=== PATIENT | male | born 1945 | race Caucasian/White ===

== ENCOUNTER 2017-10-16 09:47 | Emergency (ER) | payer OTHER ==
[~2017-10-16] VITALS: Ht 175.3 cm; Wt 116.6 kg
[~2017-10-16 09:47] MED LIST: ACEROLA C500 MG PO; ACID CONTROLLER20 MG PO; ADULT LOW DOSE81 MG PO; ASACOL HD800 MG PO; COLACE 100 MG100 MG PO; GLUCOPHAGE1000 MG PO; GLUCOTROL5 MG PO; IRON325 PO; JANUVIA100 MG PO; LISINOPRIL10 MG PO; LOPRESSOR25 PO; NITROQUICK0.4 MG SL; PLAVIX 75 MG TA75 MG PO; SIMVASTATIN80 MG PO; SPIRONOLACTONE25 M1 PO; VICODIN ES 7.51 EACH PO
[2017-10-16 10:11] LABS: ABSOLUTE BASOPHILS 0.1 thou/uL (0.0-0.2); ABSOLUTE EOSINOPHILS 0.1 thou/uL (0.0-0.7); ABSOLUTE LYMPHOCYTES 1.4 thou/uL (0.8-5.3); ABSOLUTE MONOCYTES 0.4 thou/uL (0.0-1.2); BASOPHILS 1.2 %; EOSINOPHILS 1.8 %; HEMATOCRIT 40.2 % (42.0-52.0); HEMOGLOBIN 13.3 gm/dL (14.0-18.0); LYMPHOCYTES 23.2 %; MCH 32.9 pg (26.0-34.0); MCV 99.6 fL (80.0-100.0); MONOCYTES 7.1 %; NUCLEATED RBCS 0 /100WBC; PLATELET COUNT* 199 thou/uL (150-400); POLYS 66.7 %; RBC 4.04 mil/uL (4.50-6.00); RDW-CV 14.6 % (10.5-14.5)
[2017-10-16 10:17] LABS: ANION GAP 10 mmol/L (7-16); BUN 10 mg/dL (7-18); CALCIUM 9.5 mg/dL (8.5-10.1); CHLORIDE 100 mmol/L (98-107); CO2 26 mmol/L (21-32); CREATININE 0.9 mg/dL (0.6-1.3); GLUCOSE 246 mg/dL (70-99); POTASSIUM 4.2 mmol/L (3.5-5.1); SODIUM 136 mmol/L (136-145)
[2017-10-16 10:24] LABS: ALBUMIN 3.8 g/dL (3.4-5.0); ALKALINE PHOSPHATASE 50 U/L (46-116); SGOT 45 U/L (15-37); SGPT 58 U/L (30-65); TOTAL BILIRUBIN 0.5 mg/dL (<0.1-1.0); TOTAL PROTEIN 7.8 g/dL (6.4-8.2); TROPONIN-I LEVEL <0.06 ng/mL (<0.06)
[2017-10-16 10:27] LABS: APTT 25.7 Seconds (25.0-31.3); INR 1.1; PROTIME 10.7 Seconds (9.20-11.50)
[2017-10-16] MEDS ORDERED: PREDNISONE 20 M20 M1 PO (10:32)
[2017-10-16] MEDS ORDERED: ACYCLOVIR 400400 MG PO (10:32)
[2017-10-16 11:07] VITALS: BP 120/57
--- NOTE | 2017-10-17 09:33 | EKG ---
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1945 Requested By: Javi Pena Order Number: [id number] MD: Andres Dhaliwal Measurements Intervals [place] Rate: 63 P: 44 VA: 164 QRS: 6 QRSD: 99 T: 28 QT: 414 QTc: 424 Interpretive Statements Sinus rhythm Inferior infarct, old Compared to ECG 12/16/2009 08:15:27 Myocardial infarct finding now present Electronically Signed On 10-17-2017 9:33:07 CDT by Andres Dhaliwal [email or web address] <ELECTRONICALLY SIGNED> By: Andres Dhaliwal MD, [facility] 10/17/17 0933 1026 1026 Andres Dhaliwal MD, [facility] /EPI
== END 2017-10-16 11:10 | disposition home or self-care (01) ==
LOC: M.ERS 09:47
PROVIDERS: Family Medicine
DX: G51.0 Bell's palsy (principal); E11.9 Type 2 diabetes mellitus without complications; K51.90 Ulcerative colitis, unspecified, without complications; G47.30 Sleep apnea, unspecified; F32.9 Major depressive disorder, single episode, unspecified; Z90.89 Acquired absence of other organs; Z88.8 Allergy status to other drugs, medicaments and biological substances

== ENCOUNTER 2018-03-20 16:22 | Inpatient (IN) | payer OTHER ==
[~2018-03-20] VITALS: Ht 175.3 cm; Wt 113.4 kg
[~2018-03-20 16:22] MED LIST changes: +ACYCLOVIR 400400 MG PO; +PREDNISONE 20 M20 M1 PO
[2018-03-20 16:28] VITALS: BP 182/104
[2018-03-20 16:47] LABS: HEMATOCRIT 50.3 % (42.0-52.0); HEMOGLOBIN 15.8 gm/dL (14.0-18.0); MCH 32.1 pg (26.0-34.0); MCHC 31.4 g/dL (28.0-37.0); MCV 102.3 fL (80.0-100.0); MPV 8.5 fl. (7.2-11.1); NUCLEATED RBCS 0 /100WBC; PLATELET COUNT* 348 thou/uL (150-400); RBC 4.91 mil/uL (4.50-6.00); RDW-CV 15.1 % (10.5-14.5)
[2018-03-20 16:54] LABS: INR 1.1; PROTIME 11.4 Seconds (9.20-11.50)
[2018-03-20 17:04] LABS: ANION GAP 25 mmol/L (7-16); BUN 49 mg/dL (7-18); CALCIUM 9.8 mg/dL (8.5-10.1); CHLORIDE 96 mmol/L (98-107); CO2 16 mmol/L (21-32); POTASSIUM 4.6 mmol/L (3.5-5.1); SODIUM 137 mmol/L (136-145)
[2018-03-20 17:05] LABS: BE -3.1 mmol/L (-2 to +3)
[2018-03-20 17:06] LABS: PCO2 56.1 mmHg (35.0-45.0); pH 7.267 (7.340-7.450)
[2018-03-20 17:14] LABS: ALBUMIN 3.7 g/dL (3.4-5.0); ALKALINE PHOSPHATASE 115 U/L (46-116); NT-PRO BRAIN NAT PEPTIDE 264 pg/mL (<300); SGPT 44 U/L (30-65); TOTAL BILIRUBIN 1.1 mg/dL (<0.1-1.0); TOTAL PROTEIN 9.4 g/dL (6.4-8.2); TROPONIN-I LEVEL <0.06 ng/mL (<0.06)
[2018-03-20 17:38] LABS: ABSOLUTE LYMPHOCYTES 0.2 thou/uL (0.8-5.3); ABSOLUTE MONOCYTES 0.5 thou/uL (0.0-1.2); ABSOLUTE NEUTROPHILS 16.3 thou/uL (1.6-8.1)
[2018-03-20 17:39] LABS: PLATELET ESTIMATE ADEQUATE
[2018-03-20 17:57] LABS: GLUCOSE 721 mg/dL (70-99)
[2018-03-20 18:01] LABS: SGOT 129 U/L (15-37)
[2018-03-20 19:14] VITALS: BP 178/103
[2018-03-20 19:20] VITALS: BP 188/100
[2018-03-20 19:21] LABS: URINE BILIRUBIN NEGATIVE (Negative); URINE BLOOD 3+ (Negative); URINE CLARITY CLEAR; URINE COLOR YELLOW; URINE GLUCOSE-RANDOM 3+ (Negative); URINE KETONES 1+ (Negative); URINE LEUKOCYTES-REFLEX NEGATIVE (Negative); URINE NITRITE-REFLEX NEGATIVE (Negative); URINE PROTEIN TRACE (Negative); URINE SPECIFIC GRAVITY 1.025 (1.005-1.030); URINE UROBILINOGEN 0.2 E.U./dl (0.2-1.0)
--- NOTE | 2018-03-20 19:34 | NUR ---
1910 RECEIVED PER CART FROM ER AND ICU MONITORING INITIATED
[2018-03-20 19:49] LABS: PHOSPHORUS* 4.7 mg/dL (2.5-4.9); TROPONIN-I LEVEL <0.06 ng/mL (<0.06)
[2018-03-20 20:01] LABS: CALCIUM 9.3 mg/dL (8.5-10.1); CREATININE 1.7 mg/dL (0.6-1.3); POTASSIUM 4.2 mmol/L (3.5-5.1)
[2018-03-20 20:02] LABS: HYALINE CASTS 4-10 Moderate /LPF (None Seen); MUCUS None Seen strn/LPF (None Seen); SQUAMOUS NONE SEEN /LPF (0-3)
[2018-03-20 20:03] LABS: BACTERIA-REFLEX 1-9 Few /HPF (None Seen); CRYSTALS None Seen /LPF (None Seen); URINE RBC 3-10 Few /HPF (0-2); URINE WBC-REFLEX 0-5 Rare /HPF (0-5)
[2018-03-20 20:04] LABS: ALBUMIN 3.6 g/dL (3.4-5.0); MAGNESIUM 2.9 mg/dL (1.8-2.4); PHOSPHORUS* 4.9 mg/dL (2.5-4.9)
[2018-03-21] VITALS (9 sets, daily range): BP systolic 113–165; BP diastolic 64–85
[2018-03-21 01:26] LABS: CALCIUM 8.8 mg/dL (8.5-10.1); CREATININE 1.2 mg/dL (0.6-1.3); POTASSIUM 3.8 mmol/L (3.5-5.1)
[2018-03-21 01:30] LABS: ALBUMIN 2.9 g/dL (3.4-5.0); MAGNESIUM 2.5 mg/dL (1.8-2.4)
[2018-03-21 05:16] LABS: CALCIUM 8.8 mg/dL (8.5-10.1); CREATININE 1.1 mg/dL (0.6-1.3); POTASSIUM 3.9 mmol/L (3.5-5.1)
[2018-03-21 05:18] LABS: MAGNESIUM 2.4 mg/dL (1.8-2.4); PHOSPHORUS* 3.3 mg/dL (2.5-4.9)
[2018-03-21 09:39] LABS: ALBUMIN 2.8 g/dL (3.4-5.0); CALCIUM 8.3 mg/dL (8.5-10.1); CREATININE 1.1 mg/dL (0.6-1.3); MAGNESIUM 2.4 mg/dL (1.8-2.4); PHOSPHORUS* 3.2 mg/dL (2.5-4.9); POTASSIUM 3.8 mmol/L (3.5-5.1)
--- NOTE | 2018-03-21 10:23 | EKG ---
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1945 Requested By: Aiden Stacy Order Number: [id number] MD: Andres Dhaliwal Measurements Intervals [place] Rate: 116 P: 54 CA: 142 QRS: 0 QRSD: 94 T: 136 QT: 345 QTc: 480 Interpretive Statements Sinus tachycardia Probable left atrial enlargement Inferior infarct, old Lateral leads are also involved Compared to ECG 10/16/2017 10:26:34 Sinus rhythm no longer present Myocardial infarct finding still present Electronically Signed On 03-21-2018 10:22:59 [employer] by Andres Dhaliwal [email or web address] <ELECTRONICALLY SIGNED> By: Andres Dhaliwal MD, FACC 03/21/18 1022 1630 1630 Andres Dhaliwal MD, FACC /EPI
[2018-03-21 10:37] LABS: HEMATOCRIT 44.1 % (42.0-52.0); HEMOGLOBIN 14.2 gm/dL (14.0-18.0); MCH 32.1 pg (26.0-34.0); MCHC 32.2 g/dL (28.0-37.0); MCV 99.6 fL (80.0-100.0); MPV 8.4 fl. (7.2-11.1); NUCLEATED RBCS 0 /100WBC; RBC 4.43 mil/uL (4.50-6.00); RDW-CV 14.7 % (10.5-14.5); WBC 14.2 thou/uL (4.0-11.0)
[2018-03-21 10:55] LABS: PLATELET COUNT* 250 thou/uL (150-400)
--- NOTE | 2018-03-21 11:14 | NUR ---
GAP CLOSED AT 0100. REPEATED LABS PER PROTOCOL. AFTER [address] WITH RESULTS. PT DRANK WATER AND DID BECOME NAUSEATED. DR ORDERED TO KEEP PT ON DKA PROTOCL. PT LOST IV ACCESS. DR NOTIFIED. RECEIVED ORDER FOR PICC LINE. RECEIVED ORDER FOR HIGH DOSE SLIDING SCALE WHILE PT DOES NOT HAVE INSULIN OR OTHER FLUIDS INFUSING. PT IS FORGETFUL. PT VODING PER URINAL.
[2018-03-21 12:04] LABS: ABSOLUTE LYMPHOCYTES 1.3 thou/uL (0.8-5.3); ABSOLUTE NEUTROPHILS 10.9 thou/uL (1.6-8.1); PLATELET ESTIMATE ADEQUATE
[2018-03-21 12:05] LABS: MACROCYTES 1+
--- NOTE | 2018-03-21 13:50 | NUR ---
PT REQUESTING NEOSPORIN TO RIGHT KNEE SCAB. NOTIFIED AND ORDERS RECEIVED.
[2018-03-21 14:07] LABS: ALBUMIN 2.7 g/dL (3.4-5.0); CALCIUM 7.9 mg/dL (8.5-10.1); CREATININE 0.9 mg/dL (0.6-1.3); MAGNESIUM 2.4 mg/dL (1.8-2.4); PHOSPHORUS* 3.5 mg/dL (2.5-4.9); POTASSIUM 4.5 mmol/L (3.5-5.1)
--- NOTE | 2018-03-21 14:14 | NUR ---
WARM COMPRESS APPLIED TO POSTERIOR NECK ABCESS. WOUND PATTED DRY. BACTROBAN OINTMENT APPLIED PER ID ORDERS. WOUND CULTURES SENT.
[2018-03-21 16:30] LABS: ALBUMIN 2.6 g/dL (3.4-5.0); CALCIUM 7.9 mg/dL (8.5-10.1); CREATININE 0.9 mg/dL (0.6-1.3); MAGNESIUM 2.5 mg/dL (1.8-2.4); PHOSPHORUS* 2.6 mg/dL (2.5-4.9); POTASSIUM 4.2 mmol/L (3.5-5.1)
--- NOTE | 2018-03-21 17:30 | NUR ---
DKA PROTOCOL DC'D. RECEIVED ORDER FOR DIABETIC DIET. PT PLACED ON HIGH DOSE SLIDING SCALE. ASKED DR IF WOULD LIKE LONG ACTING INSULIN, NO ORDERS RECEIVED. PT TOOK OUT LEFT FOREARM IV AND THREW ON FLOOR ON RIGHT SIDE OF BED.
--- NOTE | 2018-03-21 19:08 | NUR ---
PT TRANSFERRED TO ROOM 224 VIA BED FROM ICU AT 1900. REPORT RECEIVED FROM DILIP SIMMONS. VITAL SIGNS OBTAINED AND WITHIN NORMAL LIMITS. PT ORIENTED TO ROOM AND CALL LIGHT. THIS RN AGREES WITH PREVIOUS RESIDENCE LIFE COORDINATOR. 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 IN CONTACT ISOLATION FOR MRSA. PT DAUGHTER AT BEDSIDE AND UPDATED ON CURRENT PLAN OF CARE. PT ON 2L NC SAT UPPER 90'S. DENIES ANY SHORTNESS OF BREATH OR PAIN. MEDICATIONS PER JUL. PT REPOSITIONED EVERY 2 HOURS FOR COMFORT. HOURLY ROUNDING OBSERVED. BED IN LOW POSITION. CALL LIGHT WITHIN REACH. WILL CONTINUE PLAN OF CARE.
[2018-03-21 19:13] LABS: URINE BILIRUBIN NEGATIVE (Negative); URINE BLOOD 2+ (Negative); URINE CLARITY CLEAR; URINE COLOR YELLOW; URINE GLUCOSE-RANDOM 2+ (Negative); URINE KETONES 1+ (Negative); URINE LEUKOCYTES-REFLEX NEGATIVE (Negative); URINE NITRITE-REFLEX NEGATIVE (Negative); URINE PROTEIN NEGATIVE (Negative); URINE SPECIFIC GRAVITY >= 1.030 (1.005-1.030); URINE UROBILINOGEN 0.2 E.U./dl (0.2-1.0)
[2018-03-21 19:26] LABS: CRYSTALS None Seen /LPF (None Seen); FINE GRANULAR CASTS 0-3 Few /LPF (None Seen); HYALINE CASTS 0-3 Few /LPF (None Seen); MUCUS 4-6 Moderate strn/LPF (None Seen); SQUAMOUS 0-3 Few /LPF (0-3); URINE RBC 3-10 Few /HPF (0-2); URINE WBC-REFLEX None Seen /HPF (0-5)
--- NOTE | 2018-03-21 20:00 | NUR ---
RECEIVED REPORT AND ASSUMED CARE OF PT, ASSESSMENT COMPLETED. PT RESTING WITH EYES CLOSED. BIPAP ON WITH O2 AT 35%. SEVERAL AREAS OF ABRASIONS AND BRUISING. LG LESION NOTED TO LT BACK NECK, PUS NOTED. TELEMETRY ON SHOWING SR. WILL CONT TO MONITOR AND ASSIST NEEDED.
[2018-03-21 23:08] LABS: GLYCOHEMOGLOBIN (HGB A1C) 10.4 % (4.8-5.6)
[2018-03-22 00:50] VITALS: BP 132/72
--- NOTE | 2018-03-22 01:44 | CON ---
[address] [address] CONSULTATION Name: JEANNETTE ANN Room: [address] IN [facility]#: [id number] Admission: 03/20/18 Attend Phys: Cm Quispe, Discharge: Date of : 43 Report #: [id number] THIS REPORT FOR: //name// CC: Carol Quispe DATE OF SERVICE: 03/21/2018 CONSULTATION: Infectious diseases HISTORY OF PRESENT ILLNESS: The patient is a 72-year-old white male who comes to the hospital on 03/20. The patient apparently was found by his daughter hiding in a closet. He had fallen out of bed and had not been able to get up off the floor for unknown period of time. According to the patient, his daughter sees him about once or twice a week, so it may have been even several days. The patient presented in the hospital, he was noted to be in full blown diabetic ketoacidosis. In addition, the patient had a draining furuncle on his left neck. Infectious disease consultation was requested to assist with evaluation. The patient admits he has not taken any of his medication for about a month. When queried, he said "I just stopped taking medicine." The patient, when asked if he wanted to give up and , he said no. He is just tired of taking medicine. PAST MEDICAL HISTORY: Significant for diabetes with hypertension, hyperlipidemia. Other diagnoses include ulcerative colitis, coronary artery disease. He is post coronary artery bypass grafting, hepatitis A, depression, and sleep apnea. ALLERGIES: The patient lists allergies as METFORMIN, but description is that it causes diarrhea. MEDICATION RECONCILIATION: Medication reconciliation showed the current medications: Famotidine 20 mg daily, metoprolol 25 mg daily, clopidogrel 75 mg daily, iron 325 mg b.i.d., pantoprazole 40 mg IV daily, potassium phosphate, potassium chloride, infusions, Zosyn 3.375 IV every 8 hours, Colace 100 mg twice a day, mesalamine 800 mg b.i.d., prochlorperazine 10 mg q. 6 p.r.n. IV, promethazine suppositories 25 mg p.r.n., ondansetron 4 mg IV p.r.n., acetaminophen 650 mg p.o. q.4 hours p.r.n., insulin drip and vancomycin 750 mg IV times 1. SOCIAL HISTORY: The patient is . He lives by himself. He has 2 children who live in the area, but he says he sees him just once or twice a week. 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 He denies use of alcohol. He said he quit smoking 10-15 [place] [address] CONSULTATION Name: JEANNETTE ANN Room: [address]#: [id number] Admission: 03/20/18 Attend Phys: Cm Quispe, Discharge: Date of : 43 Report #: [id number] REVIEW OF SYSTEMS: CONSTITUTIONAL: Somewhat difficult, as the patient is confused and may have an element of denial. He says he is just fine and wants to go home. Denies any fevers, chills, sweats. He denies any headache. He notes rhinorrhea, but no congestion. Denies sore throat, trouble swallowing. He notes he has had an abscess on his neck "for a couple of months." He says it has just been draining pus for just over the last week or so. He has not taken any antibiotics for this. The patient denies cough, chest pain or shortness of breath. Denies angina, syncope or palpitations. He denies nausea or vomiting, although there is an emesis bag at the bedside. He denies abdominal pain. He says he does have his diarrhea, which is consistent with a history of ulcerative colitis, on no therapy. He notes when he stops his medicines, he does tend to get diarrhea. EXTREMITIES: No complaints. PHYSICAL EXAMINATION: GENERAL: The patient appears her stated age, alert, oriented to time, place, person and situation, not in any distress. VITAL SIGNS: Normal. The patient has been afebrile in the course of this hospitalization. Blood pressure 161/89, it was 182/104 when he came to the emergency room. SKIN: Shows focal lesion at the base of the left neck. This is about 4 cm of erythema, about 1 cm of fluctuance. With pressure, one can exclude gillian purulent creamy material. It is not particularly tender. ENT: Negative. Sinuses are not tender. HEART: Sounds normal without murmur. Regular rate and rhythm. LUNGS: Clear. ABDOMEN: Belly is morbidly obese, soft, not tender. EXTREMITIES: Unremarkable. The nails are in good repair. There are no diabetic foot wounds. LABORATORY DATA: The white count on admission was [address], hemoglobin 15.8, hematocrit 50%, platelets 348,000. Electrolytes were normal. BUN 33, creatinine 1.1, glucose was initially 721 and this morning is down to 225. The troponin, CPK and BNP are normal. Liver function tests are normal. Lactate was 7.6 in the ER and is normal this morning. Blood cultures times 2 are pending. There is no growth so far. No one has sent culture of the purulence from the neck. IMAGING DATA: Radiology department reports the chest x-ray has left lower lobe atelectasis or infiltrate. The abdominal ultrasound shows fatty liver. The CT of the intracranial structures did show significant right maxillary sinusitis, which appears acute. There is a cervical spine CT, which shows some degenerative changes. There is no comment about the soft tissue, but when I reviewed the images, I do not see any clearly [place] [address] CONSULTATION Name: JEANNETTE ANN Room: [address] IN [facility].#: [id number] Admission: 03/20/18 Attend Phys: Cm Quispe, Discharge: Date of : 43 Report #: [id number] ASSESSMENT AND PLAN: In summary, we have a 72-year-old diabetic who has been in neglect. He comes in with confusion and diabetic ketoacidosis. He has a longstanding abscess on his neck. At this time, he is to continue the vancomycin for skin and soft tissue infection pending results of cultures. I will obtain a specimen of the drainage for the lab. I would like to discontinue the Zosyn. We will continue treating his diabetes, coronary artery disease, hypertension, and ulcerative colitis. When the patient is stable, I think it may be worthwhile to have a visit with geriatric psychiatry. It is not clear if the patient is depressed and stopped his medicines as passive self-harm strategy, or if he is just too confused to understand that he needs to take his medication. In either case, the patient may not be safe to go home by himself after he is otherwise stabilized. I appreciate the opportunity to offer input in the care of the patient. Dr. Omalley will assume infectious disease care tomorrow. <ELECTRONICALLY SIGNED> By: Josse Banegas MD 03/22/18 0144 1012 [id number] Banegas MD /nt
[2018-03-22 04:48] VITALS: BP 128/70
[2018-03-22 05:53] LABS: ABSOLUTE LYMPHOCYTES 0.6 thou/uL (0.8-5.3); ABSOLUTE MONOCYTES 0.3 thou/uL (0.0-1.2); ABSOLUTE NEUTROPHILS 9.7 thou/uL (1.6-8.1); BASOPHILS 0.4 %; HEMATOCRIT 37.5 % (42.0-52.0); HEMOGLOBIN 12.4 gm/dL (14.0-18.0); LYMPHOCYTES 5.6 %; MCH 33.1 pg (26.0-34.0); MCHC 32.9 g/dL (28.0-37.0); MCV 100.5 fL (80.0-100.0); MONOCYTES 2.5 %; MPV 8.4 fl. (7.2-11.1); NUCLEATED RBCS 0 /100WBC; PLATELET COUNT* 196 thou/uL (150-400); POLYS 91.5 %; RBC 3.74 mil/uL (4.50-6.00); RDW-CV 14.1 % (10.5-14.5); WBC 10.6 thou/uL (4.0-11.0)
--- NOTE | 2018-03-22 05:55 | NUR ---
SLEPT WELL TONIGHT. PT ASKING TO REMOVE BIPAP, DID SO AND APPLIED 2L/NC OXYGEN. PT ABLE TO ANSWER ORIENTATION QUESTIONS BUT CONVERSATION CONFUSING. TELEMETRY CONT TO SHOW SR. ACHIEVED HS GOALS OF REST AND SAFETY. HOURLY ROUNDING OBSERVED. LESION TO NECK CONT TO DRAIN PURULENT DRAINAGE. TAKING IN PO FLUIDS WITHOUT COUGHING OR CHOKING. INCONT OF URINE EVEN WHEN URINAL IN PLACE.
[2018-03-22 06:02] LABS: ALBUMIN 2.4 g/dL (3.4-5.0); CALCIUM 8.2 mg/dL (8.5-10.1); MAGNESIUM 2.7 mg/dL (1.8-2.4); PHOSPHORUS* 3.2 mg/dL (2.5-4.9); TOTAL BILIRUBIN 0.5 mg/dL (<0.1-1.0); TOTAL PROTEIN 6.5 g/dL (6.4-8.2)
[2018-03-22 08:00] VITALS: BP 195/113
[2018-03-22 08:24] LABS: BE -3.5 mmol/L (-2 to +3); HCO3 19.7 mmol/L (22.0-26.0); PCO2 30.3 mmHg (35.0-45.0); PO2 65.6 mmHg (75.0-100.0); pH 7.431 (7.340-7.450)
--- NOTE | 2018-03-22 11:19 | NUR ---
Nutrition: Consult for "2-13# wt loss in 3 months." Pt stated he lost wt from 224 to 213# in past week d/t NPO status in facilities. Current wt today is 226#. CHO controlled diet. BG is elevated, 296, A1c 10.4%, alb 2.4, prealb 14.9. Pt stated he is eating well now, he is hungry. He "sometimes check my BG at home, it is 240 or so." Pt stated his dtr made him com [facility]. He is very nonchalant about his BG and DM. He refused education today. He is on SSI. Admitted with DKA. Pt would benefit from outpatient DM education and ongoing visits with a CDE. Recommend outpatient follow up for DM. No other nutrition interventions at this time. Mild risk.
[2018-03-22 11:32] VITALS: BP 127/64
--- NOTE | 2018-03-22 12:42 | CON ---
[address] [address] CONSULTATION Name: JEANNETTE ANN Room: [address] IN ..#: [id number] Admission: 03/20/18 Attend Phys: Cm Quispe, Discharge: Date of : 43 Report #: [id number] THIS REPORT FOR: //name// CC: Carol Quispe DATE OF SERVICE: 03/21/2018 REQUESTING PHYSICIAN: Dr. Quispe. HISTORY OF PRESENT ILLNESS: This is a 72-year-old gentleman with extensive history of smoking, but does not carry a previous diagnosis of COPD, has a history of obstructive sleep apnea, uses a CPAP at home, does have a history of obesity as well as diabetes, at this time presented with cellulitis/neck abscess with DKA, also noted to be in acute hypercarbic respiratory failure on initial presentation. The patient currently is on 2 liters nasal cannula, appears to be comfortable, was not on BiPAP overnight. Has had increasing shortness of breath. There is no increase in cough. The patient provided only limited history. He has had some nasal discharge. There is mild swelling of lower extremities. PAST MEDICAL HISTORY: Diabetes, obstructive sleep apnea, previous CPAP setting is not known, Dueñas's palsy, ulcerative colitis, diverticulitis, colon polyps, CABG, 5 stents, tonsillectomy, hepatitis A as a teenager, depression. Do not have previous PFTs. Do not have previous echo. SOCIAL HISTORY: Extensive history of smoking. He says he stopped smoking several years ago. ALLERGIES: METFORMIN. CURRENT MEDICATIONS: List in [facility] reviewed. HOME MEDICATIONS: List in [facility] reviewed. PHYSICAL EXAMINATION: GENERAL: Drowsy, fully arousable, does not appear to be in any distress at this time. He is on 2 liters nasal cannula. VITAL SIGNS: Are in the record, these are reviewed. HEENT: There is no throat erythema. Airway is Mallampati 4. NECK: There is some erythema of his neck noted. Description of abscess in the surgery is noted. I did not examine the posterior aspect of his neck. CHEST: Breath sounds bilaterally equal, decreased, expirations are prolonged. No added sounds. HEART: Regular, no murmur. ABDOMEN: [place] [address] CONSULTATION Name: JEANNETTE ANN Room: [address] IN [facility]#: [id number] Admission: 03/20/18 Attend Phys: Cm Quispe, Discharge: Date of : 43 Report #: [id number] EXTREMITIES: Lower extremities, trace edema, no calf tenderness. LABORATORY DATA: The patient's chest x-ray does not show major lung field abnormalities. There are distended loops of bowel noted. The patient's lab work including arterial blood gas showing hypercarbic respiratory failure in [facility] reviewed. ASSESSMENT AND PLAN: 1. Acute hypercarbic respiratory failure with history of obstructive sleep apnea, likely the patient has underlying previously undiagnosed chronic obstructive pulmonary disease as well. He uses a CPAP at home. For now, I recommend using a BiPAP while asleep and p.r.n. The same is ordered. Suggest repeating an arterial blood gas tomorrow morning. 2. Obstructive sleep apnea, see discussion above. 3. Chronic obstructive pulmonary disease exacerbation. I do feel that he has chronic obstructive pulmonary disease with some bronchospasm now, previously undiagnosed. Note that he came in with diabetic ketoacidosis; however, is on an insulin drip, therefore we should be able to control his blood glucose. Solu-Medrol is ordered and nebulized bronchodilators are ordered. 4. Diabetic ketoacidosis. Management deferred to the primary service. 5. Neck cellulitis/abscess. Surgery service on the case. 6. Past medical history of coronary artery disease, status post coronary artery bypass graft. 7. Edema. We will do a 2D echo and venous Dopplers as well. Thanks for this consultation. <ELECTRONICALLY SIGNED> By: Yara Maurer MD 03/22/18 1242 1038 0115Aanant Paulino MD /livan
--- NOTE | 2018-03-22 14:57 | NUR ---
WOUND NURSE: PATIENT'S LESIONS MANAGED BY SURGERY. PATIENT NOT SEEN A RESULT.
--- NOTE | 2018-03-22 15:03 | 2DMMODE ---
[place] [address] 2 D/M-MODE ECHOCARDIOGRAM Name: JEANNETTE ANN Room: [address] IN [facility]#: [id number] Admission: 03/20/18 Attend Phys: Cm Levy Discharge: Date of : 43 Date of Service: 03/22/18 1502 Report #: [id number] THIS REPORT FOR: //name// APPROVED REPORT Study performed: 03/22/2018 11:45:11 EXAM: Comprehensive 2D, Doppler, and color-flow Echocardiogram Patient Location: In-Patient Room #: Count includes the [facility] Status: routine BSA: 2.17 HR: 82 bpm BP: 195/113 mmHg Other Information Study Quality: Good Indications Sepsis 2D Dimensions IVSd: 14.52 (7-11mm) LVOT Diam: 20.68 (18-24mm) LVDd: 50.47 mm PWd: 13.38 (7-11mm) Ascending Ao: 34.73 (22-36mm) LVDs: 31.44 (25-40mm) Aortic Root: 30.86 mm Volumes Left Atrial Volume (Systole) LA ESV Index: 11.20 mL/m2 Aortic Valve AoV Peak Tor.: 1.82 m/s AO Peak Gr.: 13.27 mmHg LVOT Max P.05 mmHg AO Mean Gr.: 7.62 mmHg LVOT Mean P.28 mmHg LVOT Max V: 1.33 m/s AO V2 VTI: 29.47 cm LVOT Mean V: 0.83 m/s VIOLETTE (VTI): 2.78 cm2 LVOT V1 VTI: 24.42 cm Mitral Valve E/A Ratio: 0.70 MV Decel. Time: 267.28 ms MV E Max Tor.: 0.64 m/s MV PHT: 77.51 [place] [address] 2 D/M-MODE ECHOCARDIOGRAM Name: JEANNETTE ANN Room: [address] IN [facility]#: [id number] Admission: 03/20/18 Attend Phys: Cm Levy Discharge: Date of : 43 Date of Service: 03/22/18 1502 Report #: [id number] MVA (PHT): 2.84 cm2 TDI E/Lateral E': 6.40 E/Medial E': 9.14 Medial E' Tor.: 0.07 m/s Lateral E' Tor.: 0.10 m/s Pulmonary Valve PV Peak Tor.: 1.30 m/s PV Peak Gr.: 6.78 mmHg Left Ventricle The left ventricle is normal size. There is normal LV segmental wall motion. Mild concentric left ventricular hypertrophy. Left ventricular systolic function is normal. The left ventricular ejection fraction is within the normal range. LVEF is 55%. Grade I - abnormal relaxation pattern. Right Ventricle The right ventricle is normal size. The right ventricular systolic function is normal. Atria The left atrium size is normal. The right atrium size is normal. Aortic Valve Aortic valve is mildly calcified. Trace aortic regurgitation. There is no aortic valvular stenosis. Mitral Valve Mild mitral annular calcification. There is no mitral valve regurgitation noted. No evidence of mitral valve stenosis. Tricuspid Valve The tricuspid valve is normal in structure. There is no tricuspid valve regurgitation noted. Pulmonic Valve The pulmonary valve is normal in structure. There is no pulmonic valvular regurgitation. Great Vessels The aortic root is normal in size. IVC is normal in size and collapses >50% with [place] [address] 2 D/M-MODE ECHOCARDIOGRAM Name: JEANNETTE ANN Room: [address] IN [facility]#: [id number] Admission: 03/20/18 Attend Phys: Cm Levy Discharge: Date of : 43 Date of Service: 03/22/18 1502 Report #: [id number] There is no pericardial effusion. <Conclusion> The left ventricle is normal size. Mild concentric left ventricular hypertrophy. Left ventricular systolic function is normal. The left ventricular ejection fraction is within the normal range. LVEF is 55%. Grade I - abnormal relaxation pattern. The left atrium size is normal. Aortic valve is mildly calcified. Trace aortic regurgitation. There is no aortic valvular stenosis. Mild mitral annular calcification. There is no mitral valve regurgitation noted. The tricuspid valve is normal in structure. IVC is normal in size and collapses >50% with inspiration. There is no pericardial effusion. There is normal LV segmental wall motion. <ELECTRONICALLY SIGNED> By: Josse Palomares MD, FACC 03/22/18 1502 150 150 Josse Palomares MD, FACC /INF
--- NOTE | 2018-03-22 15:31 | NUR ---
MET WITH PT AND SPOKE WITH DTR/CHENG OVER THE PHONE. PT LIVES ALONE IN AN 'OLD FARM HOUSE.' HE IS NORMALLY INDEPENDENT AND FAIRLY ACTIVE. HE HAS WALKER AND CPAP. HE FOLL[facility] WITH [facility] [place]. CHENG AND SON/BENEDICTO ASSIST WITH CARES AT HOME. CHENG VOICED CONCERN ABOUT PT POSSIBLY HAVING SOME 'DEMENTIA' SHE STATES HE GETS IN 'RAGES' AND CONFUSED AT TIMES AND RECENTLY STOPPED TAKING ALL OF HIS MEDS. SHE HAS BEEN TO THE DR RECENTLY WITH HIM AND DISCUSSED MEDICATION ISSUES WITH HIS DR. SHE STATED PT HAD AGREED TO TAKE A 'REDUCED' NUMBER OF MEDS AT THOSE VISITS, BUT SHE DOESN'T THINK HE'S BEEN TAKING THEM. CHENG STATED THEY WERE INTERESTED IN FINDING AN ASSISTED LIVING FOR PT. ALSO DISCUSSED DPOA WITH PT AND DTR. PT SEEMS MORE AGREEABLE TO COMPLETE DPOA AFTER DISCUSSION. PT ADMITS TO BEING VERY 'WEAK' AND VOICED THAT HE NEEDS THERAPY BEFORE GOING 'HOME.' HE HAS BEEN TO SNF IN PAST AT [facility] AND [facility] OPTIONS DISCUSSED AND PREFER [facility], THEN [facility]. GAVE DTR INFO ON ARE[facility] ASSISTED LIVINGS ALSO. THERAPY ORDERED TODAY, WILL FAX REFERRAL TO [facility] ONCE THOSE RECEIVED. WILL FOLLOW
[2018-03-22 15:34] VITALS: BP 105/50
--- NOTE | 2018-03-22 17:04 | NUR ---
VSS, ASSUMED PT THIS AM, ASSESSMENT PERFORMED AND CHARTED, FALL PRECAUTIONS IN PLACE AND CALL LIGHT IN REACH, PT IS CONFUSED BUT PULLS AN A&O4 BASELINE BUT LACKS ANY REAL INSIGHT, PT IS TRACING SR ON MONITOR, PT IS ON 2L NC, HE IS A Q2 TURN, UP WITH MAX ASSIST, PT DENIES ANY PAIN, HIS GOAL IS TO IMPROVE ACTIVITY, WILL FOLLOW WITH PLAN OF CARE. AND HOURLY ROUNDS COMPLETED.
[2018-03-22 18:50] LABS: ABSOLUTE LYMPHOCYTES 0.5 thou/uL (0.8-5.3); ABSOLUTE MONOCYTES 0.4 thou/uL (0.0-1.2); ABSOLUTE NEUTROPHILS 9.5 thou/uL (1.6-8.1); BASOPHILS 0.3 %; EOSINOPHILS 0.1 %; HEMATOCRIT 34.5 % (42.0-52.0); HEMOGLOBIN 11.5 gm/dL (14.0-18.0); LYMPHOCYTES 5.2 %; MCH 32.7 pg (26.0-34.0); MCHC 33.3 g/dL (28.0-37.0); MCV 98.2 fL (80.0-100.0); NUCLEATED RBCS 0 /100WBC; PLATELET COUNT* 210 thou/uL (150-400); POLYS 90.4 %; RBC 3.52 mil/uL (4.50-6.00); RDW-CV 13.2 % (10.5-14.5); WBC 10.5 thou/uL (4.0-11.0)
[2018-03-22 19:03] LABS: ALBUMIN 2.3 g/dL (3.4-5.0); CALCIUM 8.1 mg/dL (8.5-10.1); CREATININE 1.1 mg/dL (0.6-1.3); PHOSPHORUS* 2.4 mg/dL (2.5-4.9); POTASSIUM 4.8 mmol/L (3.5-5.1); TOTAL BILIRUBIN 0.5 mg/dL (<0.1-1.0)
[2018-03-22 20:00] VITALS: BP 98/62
[2018-03-23] VITALS: BP 118/58
[2018-03-23 04:00] VITALS: BP 135/85
[2018-03-23 05:30] LABS: HEMOGLOBIN 12.3 gm/dL (14.0-18.0); MCH 33.1 pg (26.0-34.0); MCHC 33.3 g/dL (28.0-37.0); MCV 99.3 fL (80.0-100.0); MPV 8.2 fl. (7.2-11.1); RBC 3.73 mil/uL (4.50-6.00); RDW-CV 14.1 % (10.5-14.5); WBC 9.9 thou/uL (4.0-11.0)
[2018-03-23 05:47] LABS: ALBUMIN 2.5 g/dL (3.4-5.0); CALCIUM 8.4 mg/dL (8.5-10.1); CREATININE 0.9 mg/dL (0.6-1.3); MAGNESIUM 2.8 mg/dL (1.8-2.4); PHOSPHORUS* 3.4 mg/dL (2.5-4.9); POTASSIUM 4.3 mmol/L (3.5-5.1); TOTAL BILIRUBIN 0.5 mg/dL (<0.1-1.0); TOTAL PROTEIN 6.4 g/dL (6.4-8.2)
--- NOTE | 2018-03-23 07:10 | NUR ---
AWAKE FREQ TONIGHT. INCONT OF LG AMT OF LOOSE STOOL. BUTTOCK RED WITH OPEN AREA TO LT BUTTOCKS DUE TO MOISTURE. PT ASSIST WITH TURNING IN BED. TELEMETRY SHOWING SR. NO CHANGE IN ASSESSMENT. HS GOALS OF REST AND SAFETY ACHIEVED. HOURLY ROUNGING OBSERVED.
[2018-03-23 08:00] VITALS: BP 120/70
--- NOTE | 2018-03-23 10:07 | CON ---
[address] [address] CONSULTATION Name: JEANNETTE ANN Room: [address] IN .R.#: [id number] Admission: 03/20/18 Attend Phys: Cm Quispe, Discharge: Date of : 43 Report #: [id number] THIS REPORT FOR: //name// CC: Carol Quispe CONSULTING PHYSICIAN: Cm Quispe MD REASON FOR CONSULTATION: Acute kidney injury. HISTORY OF PRESENT ILLNESS: A 72-year-old gentleman with known previous history of kidney disease, who was admitted with DKA. He recently was having some nausea, vomiting and loose stool. He is feeling much better today. He has been started on IV fluids and empiric antibiotics. He currently has no complaints and is overall feeling better. REVIEW OF SYSTEMS: Constitutional, psych, heme, eyes, ENT, respiratory, cardiac, GI, , endocrine, all negative except as documented above. PAST MEDICAL HISTORY: Diabetes type 2, history of obstructive sleep apnea, ulcerative colitis, coronary artery disease with history of CABG. SOCIAL HISTORY: No tobacco. FAMILY HISTORY: Not pertinent in this 71-year-old gentleman. CURRENT MEDICATIONS: Reviewed. PHYSICAL EXAMINATION: VITAL SIGNS: Blood pressure 136/80, pulse 75, temperature 37.1. GENERAL: No acute distress. EYES: Extraocular movements intact. EARS: Externally normal. CARDIOVASCULAR: Regular rate. LUNGS: Decreased breath sounds. ABDOMEN: Obese, soft, nontender. MUSCULOSKELETAL: Nontender. PSYCHIATRIC: Awake, alert. LABORATORY DATA: White cell count 14.3, hemoglobin 14.2, platelets 250. Sodium 139, potassium 3.8, chloride 104, bicarbonate 25, BUN 33, creatinine 1.1, glucose 225, calcium 8.3, phosphorus 3.2, magnesium 2.4. ASSESSMENT: 1. Acute kidney injury with an admission creatinine of 2 in the setting of volume depletion, diabetic ketoacidosis. Creatinine down to 1.1. Kidney [place] [address] CONSULTATION Name: JEANNETTE ANN Room: [address] IN [facility].#: [id number] Admission: 03/20/18 Attend Phys: Cm Quispe, Discharge: Date of : 43 Report #: [id number] 2. Diabetes. 3. Hypertension. 4. Hematuria noted on urinalysis. PLAN: Renal function is improving, currently on IV fluids. With regard to the hematuria, he will need a repeat UA and if hematuria is persistent, suggest Urology evaluation and possible cystoscopy and other recommendations. Thank you for requesting my opinion in the care and management of this patient. <ELECTRONICALLY SIGNED> By: Chantell Peterson MD 03/23/18 1007 1314 [id number] Nafisa Peterson MD /nt
[2018-03-23 12:00] VITALS: BP 142/118
--- NOTE | 2018-03-23 12:00 | NUR ---
CONTINUE TO FOLLOW. DPOA NOTARIZED AND COPY ON CHART AND COPIES TO PT. DISCUSSED SNF AGAIN WITH PT AND HE WOULD LIKE TO GO TO [facility] AT DC. CALLED AND FAXED INITIAL REFERRAL TO [facility]. ANTICIPATE DC IN NEXT COUPLE DAYS. PER [facility], THEY WILL NEED TO OBTAIN INSURANCE AUTH
[2018-03-23] MEDS ORDERED: HUMULIN R500 UNIT/1 SUBQ (12:15)
--- NOTE | 2018-03-23 15:08 | NUR ---
VSS, ASSUMED CARE THIS AM, ASSESSMENT PERFORMED AND CHARTED, FALL PRECAUTIONS IN PLACE AND CALL LIGHT IN REACH, PT IS TRACING SR ON THE MONITOR, HE IS UP WITH 1 TO CHAIR OR BEDSIDE, NEEDS A WALKER AND O2. HIS GOAL IS TO SIT UP IN CHAIR AND WORK WITH PT/OT, HE IS ALERT BUT EASILY CONFUSED, WILL FOLLOW WITH PLAN OF CARE AND HOURLY ROUNDS,
[2018-03-23 15:48] VITALS: BP 142/73
[2018-03-23 20:00] VITALS: BP 126/60
[2018-03-24] VITALS: BP 112/58
[2018-03-24 04:00] VITALS: BP 111/65
--- NOTE | 2018-03-24 04:48 | NUR ---
PT. PROGRESSING TOWARDS GOALS. HAS BEEN CONTINENT OF BOWEL AND URINE THROUGHOUT SHIFT. SINUS RHYTHM/DANILO AT TIMES WHEN SLEEPING. HAS WORN CPAP ALL EVENING FOR SLEEP. ISOLATION PRECAUTIONS MAINTAINED, WILL CONTINUE TO MONITOR.
--- NOTE | 2018-03-24 05:00 | NUR ---
HOURLY ROUNDING COMPLETED THROUGHOUT SHIFT, PT. REMAINS SINUS RHYTHM/BRADYCARDIC AT TIMES ON MONITOR.
[2018-03-24 06:57] LABS: HEMATOCRIT 34.4 % (42.0-52.0); HEMOGLOBIN 11.4 gm/dL (14.0-18.0); MCH 32.8 pg (26.0-34.0); MCHC 33.2 g/dL (28.0-37.0); MCV 98.8 fL (80.0-100.0); MPV 8.3 fl. (7.2-11.1); RBC 3.48 mil/uL (4.50-6.00); RDW-CV 13.6 % (10.5-14.5); WBC 8.2 thou/uL (4.0-11.0)
[2018-03-24 07:11] LABS: ALBUMIN 2.3 g/dL (3.4-5.0); CALCIUM 8.3 mg/dL (8.5-10.1); CREATININE 0.8 mg/dL (0.6-1.3); MAGNESIUM 2.4 mg/dL (1.8-2.4); PHOSPHORUS* 3.8 mg/dL (2.5-4.9); POTASSIUM 3.7 mmol/L (3.5-5.1); TOTAL BILIRUBIN 0.3 mg/dL (<0.1-1.0); TOTAL PROTEIN 5.4 g/dL (6.4-8.2)
[2018-03-24 09:00] VITALS: BP 120/59
--- NOTE | 2018-03-24 10:40 | NUR ---
RECEIVED CONSULT FOR POSSIBLE REHAB ADMISSION. CONSULT HAS BEEN ACKNOWLEDGED BY MAKE UP ARTIST AND DR. REYNOLDS. PATIENT ADMITTED WITH DKA AND NECK ABSCESS. PATIENT LIVES ALONE AND HAD NOT BEEN TAKING HIS MEDS, HE WAS CONFUSED AND ENCEPHALOPATHIC WHEN ADMITTED. PER DAUGHTER CONCERN FOR DEMENTIA, NON COMPLIANCE WITH MEDICATIONS AND ANGER. SPOKE WITH JOANA BARRAZA AND PATIENT WILL NOT HAVE 24/7 ASSIST OR ANYONE THAT CAN STAY WITH PATIENT DURING THE DAY, THEY ARE INTERESTED IN POSSIBLE [facility]. PATIENT DOES NOT MEED ACUTE REHAB QUALIFICATIONS AT THIS TIME BUT WOULD BENEFIT FROM SKILLED STAY. THANK YOU FOR THIS CONSULT.
[2018-03-24 12:00] VITALS: BP 135/65
--- NOTE | 2018-03-24 13:45 | NUR ---
HEARD BACK FROM [facility]. THEY ARE FULL AND UNABLE TO ACCEPT PT. HAD PREVIOUSLY DISCUSSED [facility] OPT[facility]. CALLED AND FAXED REFERRAL TO [facility]. THEY CAN ACCEPT PT AT DC BUT HAVE TO OBTAIN INSURANCE AUTH. PT AND DTR UPDATED. ANTICIPATED DC TOMORROW
[2018-03-24 15:38] VITALS: BP 117/62
--- NOTE | 2018-03-24 18:58 | NUR ---
ASSUMED PT CARE AT 0700 PT IS ALERT AND ORIENTED X 3-4 PT IS FORGETFUL, PT DENIES PAIN OR SOA, PT IS UP WITH ASSIST X 1 WITH WALKER, PT IS SR ON THE MONTITOR, PT WILL DISCHARGE TOMORROW TO [facility], PT SWITCHED TO PO ANTIBIOTICS FIRST DOSE GIVEN, PT IS PROGRESSING TOWARDS GOALS, PT IS A FALL RISK BED ALARM IS ON, PT HAS CPAP AT BEDSIDE IN USE, PT HAS HAD NO EPISODES OF DIARRHEA THIS SHIFT, WILL CONTINUE TO MONITOR
[2018-03-24 20:00] VITALS: BP 152/78
[2018-03-25] VITALS: BP 146/77
--- NOTE | 2018-03-25 00:26 | NUR ---
ASSUMED PT CARE AT 1930. ASSESSMENT COMPLETED CHARTED. PT CPAP ON AT TIME OF ASSESSMENT. ABLE TO MAKE NEEDS KNOWN YET DOESNT USE THE CALL LIGHT. NO C/O PAIN OR DISCOMFORT. RESTING IN BED AT THIS TIME WITH BED ALARM ON. WILL CONTINUE TO MONITOR.
[2018-03-25 04:00] VITALS: BP 121/58
[2018-03-25 05:02] LABS: HEMATOCRIT 35.5 % (42.0-52.0); MCH 33.2 pg (26.0-34.0); MCHC 33.8 g/dL (28.0-37.0); MCV 98.2 fL (80.0-100.0); MPV 8.4 fl. (7.2-11.1); RBC 3.61 mil/uL (4.50-6.00); RDW-CV 13.9 % (10.5-14.5); WBC 9.6 thou/uL (4.0-11.0)
[2018-03-25 05:19] LABS: CALCIUM 8.7 mg/dL (8.5-10.1); CREATININE 0.9 mg/dL (0.6-1.3); MAGNESIUM 2.2 mg/dL (1.8-2.4); PHOSPHORUS* 3.4 mg/dL (2.5-4.9); POTASSIUM 3.7 mmol/L (3.5-5.1)
[2018-03-25 07:59] VITALS: BP 130/63
--- NOTE | 2018-03-25 11:06 | NUR ---
ORDERS RECEIVED FOR DC TO SNF. UPDATED PT AND DTR/CHENG WITH DC TIME. PT TO GO TO [facility]. CALLED AND FAXED DC ORDERS TO [facility]. SHE SET UP W/C VAN FOR 3PM. DTR TO BRING IN CLOTHES FOR PT. CHART COPIED AND RN HAS NUMBER TO CALL REPORT
[2018-03-25] MEDS ORDERED: LANTUS SUBQ (11:15)
[2018-03-25] MEDS ORDERED: MINOCYCLINE HC100 M2 PO (11:17)
[2018-03-25 11:22] VITALS: BP 130/63
[2018-03-25 12:00] VITALS: BP 127/72
--- NOTE | 2018-03-25 13:01 | NUR ---
ASSUMED CARE OF PT AROUND 0730 THIS AM. REFER TO ASSESSMENT. PT TO BE DC'D TO [facility] 1500 TODAY. DC WOUND PICTURES TAKEN. FAMILY AT BEDSIDE AND AWARE OF PLAN OF CARE. NO OTHER CONCERNS AT THIS TIME. CLWR. WCTM.
--- NOTE | 2018-03-25 14:21 | NUR ---
REPORT GIVEN TO ACCEPTING NURSE AT [facility] AT THIS TIME. ANTICIPATE TRANSPORTATION AROUND 1500 TODAY.
--- NOTE | 2018-03-25 15:09 | NUR ---
TRANSPORTATION HERE AT THIS TIME. FAMILY TO TAKE PT BELONGINGS WITH THEM. NO OTHER CONCERNS AT THIS TIME.
[2018-03-25 15:11] VITALS: BP 130/63
--- NOTE | 2018-04-03 15:44 | CON ---
[facility] [address] [place] [address] CONSULTATION Name: JEANNETTE ANN Room: [address] IN ..#: [id number] Admission: 03/20/18 Attend Phys: Cm Quispe, Discharge: 03/25/18 Date of : 43 Report #: [id number] THIS REPORT FOR: //name// CC: Carol Quispe DATE OF SERVICE: 03/23/2018 HISTORY OF PRESENT ILLNESS: This is a 72-year-old male patient who is unable to provide any reliable history. The patient's daughter is there. She tells me that the patient was living on his own. He was able to drive. She does not know whether he was getting lost or not. Some works will be done by his family at his home like mowing the lawn, but he was able to take care of himself most of the time. His memory was deteriorating to some extent. Sometimes when the daughter will be driving with the patient he will ask where he is, according to the daughter. Those memory problems were not severe. Then, he was found by the daughter at home and he was there for 2 days. His blood sugar was 400. He was critically ill and since then he has become better, but his memory has never come back to his baseline. He did have some trouble with hallucination. REVIEW OF SYSTEMS: Positive for type 2 diabetes, history of ulcerative colitis, diverticulosis, colon polyp, diarrhea, coronary artery disease, history of hepatitis, history of depression and sleep apnea. He does take Plavix. When he came in, he had ketones in his urine. He indicates he does not have any respiratory difficulty. He denies any prior history of stroke and this was his relevant 14-point review of systems. PAST MEDICAL HISTORY: Negative for any stroke. FAMILY HISTORY: Negative for any early age stroke. SOCIAL HISTORY: As described above, the patient was living by himself and was able to do most of the things by himself. However, it looks like his memory was deteriorating even prior to this happening and it has just become worse. Reviewing the record indicates that he did have a vitamin B12 at one time and it was unremarkable. He indicates that he does not drink alcohol or smoke. PHYSICAL EXAMINATION: Indicates he is alert. He is responsive. He can tell me the month, but tells me the date is . He is able to tell me he is in [place]. He could not name the president, but was able to describe him. After some time he was able to name him. So, his memory does look poor. His speech and concentration looks okay. Fund of knowledge is diminished. Cranial nerve examination 2-12 is unremarkable. Neuromuscular examinations indicate that he has very little movement of the left foot either in dorsiflexion or plantar flexion. He does have a history of neuropathy, but according to the daughter, it is new. His position sense is still present. [place] [address] CONSULTATION Name: JEANNETTE ANN Room: [address]#: [id number] Admission: 03/20/18 Attend Phys: Cm Quispe, Discharge: 03/25/18 Date of : 43 Report #: [id number] I cannot look at the fundus very well. He is obese individual who does not have any dysmorphic features of eyes, ears, and face. His vision and hearing look adequate. He does appear to be somewhat short of breath, but he denies that. Cardiac examination appears unremarkable. Blood pressure is 142/118, respirations 17, pulse is 73, temperature is 97.7. LABORATORY DATA: His white count is normal at 9.9. His sodium also is normal. It looks like his kidney function has improved pretty significantly since he has come in. He did have a CT scan of the head, which appears noncontributory. IMPRESSION: 1. The patient has altered mental status. That is probably because this patient has limited cognition and has either minimum cognitive impairment or early dementia prior to admission. That got decompensated by encephalopathy. Patients with encephalopathy do not always return back to their baseline if they have underlying minimum cognitive impairment or dementia. 2. Significant motor deficit in the left foot area. That is new and probably occurred because of some nerve injury he suffered there. 3. Underlying neuropathy, which is probably because of diabetes, but other etiologies need to be excluded. 4. Numerous other medical problems. RECOMMENDATIONS: 1. We will see if an MRI can be done on this patient. 2. Because of significant weakness in the left leg and foot area, which is new, we will see if he qualifies for rehabilitation for short stay because he was living independently. 3. His cognitive evaluation need to be done to see what kind of living arrangement he can go into; he may have to go to [facility] from here and have that neuropsychological testing done as an outpatient because nobody comes here to do that. In the meantime, we will ask Speech to do some cognitive evaluation in this patient. I discussed all of it with the family. He does have some hardware in the shoulder. I discussed with them we will try to do an MRI, but sometimes complications can occur. They understand and they want to proceed with that workup. More than 50 minutes of time was spent taking care of this patient today and majority of that time was spent counseling the patient and coordinating his care. <ELECTRONICALLY SIGNED> By: Elpidio Arceo MD 04/03/18 1544 1410 [id number] Arceo MD /nt
--- NOTE | 2018-04-03 15:44 | EEG ---
[address] [address] EEG STUDY REPORT Name: JEANNETTE ANN Room: [address]#: [id number] Admission: 03/20/18 Attend Phys: Cm Quispe, Discharge: 03/25/18 Date of : 43 Report #: [id number] THIS REPORT FOR: //name// CC: Carol Quispe DATE OF SERVICE: 03/23/2018 This patient is being evaluated for altered mental status. EEG was done by placing the electrode by standard 10-20 system of electrode placement. Both referential and sequential montages were used for recording. Background activity in this patient's EEG is about 8-9 Hz and 30-40 microvolt. This is a symmetrical activity. This patient went to sleep that is associated with bilateral slowing and vertex sharp waves. Photic stimulation was unremarkable. Throughout the record, no active epileptiform activity was noticed. IMPRESSION: This patient's EEG is intermixed with some theta range slowing on both sides. That is a nonspecific abnormality, which can occur with encephalopathy, effect of psychotropic medication, dementia, etc. Finding is mild. Therefore, clinical correlation is recommended. <ELECTRONICALLY SIGNED> By: Elpidio Arceo MD 04/03/18 1544 1748 [id number] Arceo MD /livan
== END 2018-03-25 15:10 | DRG 871 ==
LOC: M.ERS 16:22 → M.2W 17:42 → M.TBA-ER 17:42 → M.ICU 17:42 → M.2W 03-21 19:02
PROVIDERS: Emergency Medicine Emergency Medical Services; Internal Medicine Critical Care Medicine; Internal Medicine Infectious Disease; ADMIT Family Medicine
PROC: 5A09357 Assistance with Respiratory Ventilation, Less than 24 Consecutive Hours, Continuous Positive Airway Pressure (ICD-10-PCS; principal; 2018-03-21)
DX: A41.9 Sepsis, unspecified organism (principal); N17.0 Acute kidney failure with tubular necrosis; J96.01 Acute respiratory failure with hypoxia; G93.41 Metabolic encephalopathy; E11.10 Type 2 diabetes mellitus with ketoacidosis without coma; J96.02 Acute respiratory failure with hypercapnia; J18.9 Pneumonia, unspecified organism; J44.1 Chronic obstructive pulmonary disease with (acute) exacerbation; L03.221 Cellulitis of neck; L02.11 Cutaneous abscess of neck; E87.4 Mixed disorder of acid-base balance; J44.0 Chronic obstructive pulmonary disease with (acute) lower respiratory infection; J98.11 Atelectasis; I10 Essential (primary) hypertension; E78.5 Hyperlipidemia, unspecified; I25.10 Atherosclerotic heart disease of native coronary artery without angina pectoris; G47.33 Obstructive sleep apnea (adult) (pediatric); R31.9 Hematuria, unspecified; G51.0 Bell's palsy; K57.90 Diverticulosis of intestine, part unspecified, without perforation or abscess without bleeding; E66.01 Morbid (severe) obesity due to excess calories; R16.1 Splenomegaly, not elsewhere classified; K76.0 Fatty (change of) liver, not elsewhere classified; B95.62 Methicillin resistant Staphylococcus aureus infection as the cause of diseases classified elsewhere; F32.9 Major depressive disorder, single episode, unspecified; Z87.891 Personal history of nicotine dependence; Z68.36 Body mass index [BMI] 36.0-36.9, adult; Z86.010 Personal history of colon polyps; Z95.1 Presence of aortocoronary bypass graft; Z95.5 Presence of coronary angioplasty implant and graft; Z86.19 Personal history of other infectious and parasitic diseases; Z79.02 Long term (current) use of antithrombotics/antiplatelets; Z79.82 Long term (current) use of aspirin; Z91.14 Patient's other noncompliance with medication regimen; Z79.899 Other long term (current) drug therapy; Z88.8 Allergy status to other drugs, medicaments and biological substances; Z82.49 Family history of ischemic heart disease and other diseases of the circulatory system

== ENCOUNTER 2019-01-31 10:54 | Emergency (ER) | payer OTHER ==
[~2019-01-31] VITALS: Ht 175.3 cm; Wt 108.4 kg
[~2019-01-31 10:54] MED LIST changes: +HUMULIN R500 UNIT/1 SUBQ; +LANTUS SUBQ; +MINOCYCLINE HC100 M2 PO
[2019-01-31] MEDS ORDERED: OZEMPIC0.25 MG/0. SUBQ (11:06)
[2019-01-31] MEDS ORDERED: PRALUENT P75 MG/1 ML SUBQ (11:08)
[2019-01-31 11:20] LABS: ABSOLUTE BASOPHILS 0.1 thou/uL (0.0-0.2); ABSOLUTE EOSINOPHILS 0.2 thou/uL (0.0-0.7); ABSOLUTE LYMPHOCYTES 1.7 thou/uL (0.8-5.3); ABSOLUTE MONOCYTES 0.5 thou/uL (0.0-1.2); ABSOLUTE NEUTROPHILS 5.7 thou/uL (1.6-8.1); BASOPHILS 0.8 %; EOSINOPHILS 1.9 %; HEMOGLOBIN 13.9 gm/dL (14.0-18.0); LYMPHOCYTES 20.5 %; MCH 33.5 pg (26.0-34.0); MCHC 34.7 g/dL (28.0-37.0); MCV 96.3 fL (80.0-100.0); MONOCYTES 6.1 %; MPV 7.6 fl. (7.2-11.1); NUCLEATED RBCS 0 /100WBC; PLATELET COUNT* 241 thou/uL (150-400); POLYS 70.7 %; RBC 4.16 mil/uL (4.50-6.00); RDW-CV 14.2 % (10.5-14.5); WBC 8.1 thou/uL (4.0-11.0)
[2019-01-31 11:30] LABS: ANION GAP 13 mmol/L (7-16); BUN 18 mg/dL (7-18); CALCIUM 9.3 mg/dL (8.5-10.1); CHLORIDE 99 mmol/L (98-107); CO2 24 mmol/L (21-32); GLUCOSE 223 mg/dL (70-99); POTASSIUM 3.7 mmol/L (3.5-5.1); SODIUM 136 mmol/L (136-145)
[2019-01-31 11:39] LABS: ALBUMIN 3.9 g/dL (3.4-5.0); ALKALINE PHOSPHATASE 58 U/L (46-116); SGOT 18 U/L (15-37); SGPT 35 U/L (30-65); TOTAL BILIRUBIN 0.5 mg/dL (<0.1-1.0); TROPONIN-I LEVEL <0.06 ng/mL (<0.06)
[2019-01-31] MEDS ORDERED: PREDNISONE 10 M10 M1 PO (12:07)
[2019-01-31] MEDS ORDERED: ZOVIRAX800 MG PO (12:07)
[2019-01-31 12:53] VITALS: BP 130/74
--- NOTE | 2019-02-01 15:02 | EKG ---
[place] [address] ELECTROCARDIOGRAM REPORT Name: JEANNETTE ANN Room: [facility]#: [id number] Admission: 01/31/19 Attend Phys: Discharge: 01/31/19 Date of : 43 Report #: [id number] THIS REPORT FOR: //name// [facility] ED Test Date: 2019-01-31 Test Time: 11:09:54 Pat Name: JEANNETTE ANN Department: Room: Gender: M Bid Writer: EV : 1945 Requested By: Aiden Stacy Order Number: [id number] MD: Josse Palomares Measurements Intervals [place] Rate: 89 P: 42 MS: 168 QRS: -5 QRSD: 87 T: 32 QT: 350 QTc: 426 Interpretive Statements Sinus rhythm Inferior infarct, old Compared to ECG 03/20/2018 16:30:25 Sinus tachycardia no longer present Myocardial infarct finding still present Electronically Signed On 02-01-2019 15:01:51 CDT by Josse Palomares [email or web address] <ELECTRONICALLY SIGNED> By: Josse Palomares MD, [facility] 02/01/19 1501 1109 1109 Josse Palomares MD, FAC /EPI
== END 2019-01-31 12:56 | disposition home or self-care (01) ==
LOC: M.ERS 10:54
PROVIDERS: Emergency Medicine Emergency Medical Services
DX: G51.0 Bell's palsy (principal); I10 Essential (primary) hypertension; G47.30 Sleep apnea, unspecified; E11.9 Type 2 diabetes mellitus without complications; F32.9 Major depressive disorder, single episode, unspecified; Z88.8 Allergy status to other drugs, medicaments and biological substances; Z95.1 Presence of aortocoronary bypass graft; Z79.4 Long term (current) use of insulin

== ENCOUNTER 2019-02-16 11:33 | Inpatient (IN) | payer OTHER ==
[2019-02-16] VITALS (14 sets, daily range): BP systolic 107–140; BP diastolic 50–79
[~2019-02-16] VITALS: Ht 170.2 cm; Wt 134.9 kg
[~2019-02-16 11:33] MED LIST changes: +OZEMPIC0.25 MG/0. SUBQ; +PRALUENT P75 MG/1 ML SUBQ; +PREDNISONE 10 M10 M1 PO; +ZOVIRAX800 MG PO
[2019-02-16] MEDS ORDERED: OZEMPIC1 MG/0.75 (11:45)
[2019-02-16] MEDS ORDERED: PRALUENT P150 MG/1 M (11:46)
[2019-02-16] MEDS ORDERED: AZATHIOPRINE50 MG PO (11:47)
[2019-02-16] MEDS ORDERED: ALOGLIPTIN25 MG PO (11:48)
[2019-02-16 12:07] LABS: HEMATOCRIT 43.6 % (42.0-52.0); HEMOGLOBIN 14.7 gm/dL (14.0-18.0); MCH 33.3 pg (26.0-34.0); MCHC 33.6 g/dL (28.0-37.0); MCV 98.9 fL (80.0-100.0); MPV 7.7 fl. (7.2-11.1); NUCLEATED RBCS 0 /100WBC; PLATELET COUNT* 222 thou/uL (150-400); RBC 4.41 mil/uL (4.50-6.00); RDW-CV 14.7 % (10.5-14.5); WBC 14.8 thou/uL (4.0-11.0)
[2019-02-16 12:12] LABS: CALCIUM 9.7 mg/dL (8.5-10.1); CREATININE 1.2 mg/dL (0.6-1.3); POTASSIUM 4.8 mmol/L (3.5-5.1)
[2019-02-16 12:23] LABS: ALBUMIN 3.9 g/dL (3.4-5.0); TOTAL BILIRUBIN 0.6 mg/dL (<0.1-1.0); TOTAL PROTEIN 8.4 g/dL (6.4-8.2)
[2019-02-16 12:26] LABS: PROTIME 10.7 Seconds (9.20-11.50)
[2019-02-16 12:50] LABS: ABSOLUTE LYMPHOCYTES 2.1 thou/uL (0.8-5.3); ABSOLUTE MONOCYTES 0.1 thou/uL (0.0-1.2); ABSOLUTE NEUTROPHILS 12.6 thou/uL (1.6-8.1); PLATELET ESTIMATE ADEQUATE
[2019-02-16 14:04] LABS: URINE BILIRUBIN NEGATIVE (Negative); URINE BLOOD NEGATIVE (Negative); URINE CLARITY CLEAR; URINE COLOR YELLOW; URINE GLUCOSE-RANDOM 1+ (Negative); URINE KETONES NEGATIVE (Negative); URINE LEUKOCYTES-REFLEX NEGATIVE (Negative); URINE NITRITE-REFLEX NEGATIVE (Negative); URINE PROTEIN TRACE (Negative); URINE SPECIFIC GRAVITY >= 1.030 (1.005-1.030); URINE UROBILINOGEN 0.2 E.U./dl (0.2-1.0)
[2019-02-16 14:13] LABS: AMP/METHAMP Negative (Negative); BARBITURATES Negative (Negative); BENZODIAZEPINES Negative (Negative); COCAINE Negative (Negative); METHADONE Negative (Negative); OPIATES Negative (Negative); PCP Negative (Negative); THC Negative (Negative)
--- NOTE | 2019-02-16 15:36 | 2DMMODE ---
[place] [address] 2 D/M-MODE ECHOCARDIOGRAM Name: JEANNETTE ANN Room: [facility]#: [id number] Admission: 02/16/19 Attend Phys: Discharge: Date of : 43 Date of Service: 02/16/19 1536 Report #: [id number] THIS REPORT FOR: //name// APPROVED REPORT Study performed: 02/16/2019 14:43:04 EXAM: Comprehensive 2D, Doppler, and color-flow Echocardiogram Patient Location: In-Patient Room #: er Status: routine BSA: 2.22 HR: 107 bpm BP: 114/52 mmHg Rhythm: NSR Other Information Study Quality: Good Indications Pulmonary Embolism 2D Dimensions IVSd: 13.46 (7-11mm) LVOT Diam: 24.73 (18-24mm) LVDd: 44.69 mm PWd: 11.86 (7-11mm) Ascending Ao: 37.34 (22-36mm) LVDs: 28.44 (25-40mm) Aortic Root: 34.38 mm Volumes Left Atrial Volume (Systole) LA ESV Index: 19.30 mL/m2 Aortic Valve AoV Peak Tor.: 1.71 m/s AO Peak Gr.: 11.63 mmHg LVOT Max P.00 mmHg AO Mean Gr.: 6.46 mmHg LVOT Mean P.00 mmHg LVOT Max V: 1.22 m/s AO V2 VTI: 23.91 cm LVOT Mean V: 0.79 m/s VIOLETTE (VTI): 3.48 cm2 LVOT V1 VTI: 17.33 cm TDI Medial E' Tor.: 0.05 m/s Lateral E' Tor.: 0.05 m/[place] [address] 2 D/M-MODE ECHOCARDIOGRAM Name: JEANNETTE ANN Room: [facility]#: [id number] Admission: 02/16/19 Attend Phys: Discharge: Date of : 43 Date of Service: 02/16/19 1536 Report #: [id number] Pulmonary Valve PV Peak Tor.: 0.64 m/s PV Peak Gr.: 1.65 mmHg Tricuspid Valve RAP Estimate: 5.00 mmHg TR Peak Gr.: 31.06 mmHg RVSP: 36.00 mmHg PA Pressure: 36.00 mmHg Left Ventricle The left ventricle is normal size. There is normal LV segmental wall motion. There is normal left ventricular wall thickness. Left ventricular systolic function is normal. The left ventricular ejection fraction is within the normal range. LVEF is 60%. Grade I - abnormal relaxation pattern. Right Ventricle Right ventricle is moderately dilated. Right ventricle is moderately hypokinetic. Atria The left atrium size is normal. Right atrium is moderately dilated. Aortic Valve Moderate aortic valve sclerosis. No aortic regurgitation is present. No hemodynamically significant valvular aortic stenosis. Mitral Valve The mitral valve is normal in structure. Trace mitral regurgitation. No evidence of mitral valve stenosis. Tricuspid Valve The tricuspid valve is normal in structure. Mild tricuspid regurgitation. Mild pulmonary hypertension. Pulmonic Valve The pulmonary valve is normal in structure. There is no pulmonic valvular regurgitation. Great Vessels The aortic root is normal in size. IVC is normal in size and collapses >50% with inspiration. Pericardium There [place] [address] 2 D/M-MODE ECHOCARDIOGRAM Name: JEANNETTE ANN Room: [facility]#: [id number] Admission: 02/16/19 Attend Phys: Discharge: Date of : 43 Date of Service: 02/16/19 1536 Report #: [id number] <Conclusion> The left ventricle is normal size. There is normal left ventricular wall thickness. Left ventricular systolic function is normal. The left ventricular ejection fraction is within the normal range. LVEF is 60%. Grade I - abnormal relaxation pattern. Right ventricle is moderately dilated. Right ventricle is moderately hypokinetic. The left atrium size is normal. Right atrium is moderately dilated. Moderate aortic valve sclerosis. No aortic regurgitation is present. There is no hemodynamically significant aortic stenosis The mitral valve is normal in structure. The tricuspid valve is normal in structure. Mild tricuspid regurgitation. Mild pulmonary hypertension. IVC is normal in size and collapses >50% with inspiration. There is no pericardial effusion. There is normal LV segmental wall motion. <ELECTRONICALLY SIGNED> By: Josse Palomares MD, FACC 02/16/19 1536 1536 1536 Josse Palomares MD, FACC /INF
--- NOTE | 2019-02-16 16:23 | EKG ---
[place] [address] ELECTROCARDIOGRAM REPORT Name: JEANNETTE ANN Room: [facility]#: [id number] Admission: 02/16/19 Attend Phys: Discharge: Date of : 43 Report #: [id number] THIS REPORT FOR: //name// [facility] ED Test Date: 2019-02-16 Test Time: 11:41:09 Pat Name: JEANNETTE ANN Department: Room: Gender: M Investigative Shopper: : 1945 Requested By: Moiz Reyna Order Number: [id number] MD: Josse Palomares Measurements Intervals [place] Rate: 98 P: 64 SD: 156 QRS: 45 QRSD: 103 T: 6 QT: 347 QTc: 444 Interpretive Statements Sinus tachycardia Atrial premature complexes Inferior infarct, old possible Compared to ECG 01/31/2019 11:09:54 Atrial premature complex(es) now present Myocardial infarct finding still present Electronically Signed On 02-16-2019 16:23:49 CDT by Josse Palomares [email or web address] <ELECTRONICALLY SIGNED> By: Josse Palomares MD, [facility] 02/16/19 1623 1141 1141 Josse Palomares MD, [facility] /EPI
[2019-02-16 16:43] LABS: APTT 25.5 Seconds (25.0-31.3)
--- NOTE | 2019-02-16 19:54 | NUR ---
PT RECEIVED FROM ER AT 1725, A&O X4. DENIES PAIN. ON O2 SUPPORT NC 3L/MIN. NO SOB. HEPARIN STARTED IN ER AT 1500 U/HR. TOLERATED HIS DIET. VOIDING PER URINAL.
[2019-02-17] VITALS (39 sets, daily range): BP systolic 88–187; BP diastolic 37–97
--- NOTE | 2019-02-17 03:12 | NUR ---
RECEIVED REPORT AND ASSUMED CARE AT 1900. VSS. ICU MONITORING IN PLACE. PT DENIES COMPLAINTS OF PAIN. ASSESSMENT COMPLETED CHARTED. PT UP WITH ASSIST/ STARTED SHIFT ON 3L NC. UP TO 6L NC/ BUBBLER ADDED FOR COMFORT. BED LOCKED IN LOWEST POSTION, CALL LIGHT WITHIN REACH. BED ALARM ON. BATH COMPLETED.
[2019-02-17 03:43] LABS: ABSOLUTE BASOPHILS 0.1 thou/uL (0.0-0.2); ABSOLUTE EOSINOPHILS 0.2 thou/uL (0.0-0.7); ABSOLUTE LYMPHOCYTES 1.7 thou/uL (0.8-5.3); ABSOLUTE MONOCYTES 0.6 thou/uL (0.0-1.2); ABSOLUTE NEUTROPHILS 6.2 thou/uL (1.6-8.1); BASOPHILS 0.6 %; HEMATOCRIT 38.5 % (42.0-52.0); HEMOGLOBIN 13.1 gm/dL (14.0-18.0); LYMPHOCYTES 19.2 %; MCH 33.2 pg (26.0-34.0); MCV 97.6 fL (80.0-100.0); MONOCYTES 6.7 %; MPV 7.4 fl. (7.2-11.1); NUCLEATED RBCS 0 /100WBC; PLATELET COUNT* 174 thou/uL (150-400); POLYS 71.5 %; RBC 3.94 mil/uL (4.50-6.00); RDW-CV 14.9 % (10.5-14.5); WBC 8.6 thou/uL (4.0-11.0)
[2019-02-17 03:53] LABS: ALBUMIN 3.3 g/dL (3.4-5.0); CALCIUM 9.3 mg/dL (8.5-10.1); TOTAL BILIRUBIN 0.4 mg/dL (<0.1-1.0)
--- NOTE | 2019-02-17 14:50 | NUR ---
From previous record, pt lived at home alone and pt family was considering [facility] options, pt may live with pt family now; SW attempted to call pt designated loss prevention representative, svetlana Luna but Cheryl did not answer. Pt has history of family support. Pt has RW, CPAP. Pt has hx of SNF at [facility], [facility], and [facility]. SW to continue to follow to assist with safe dc planning.
--- NOTE | 2019-02-17 18:41 | NUR ---
PATIENT PROGRESSING WELL TOWARDS GOALS. FORGETFUL BUT EASILY REDIRECTABLE. REMAINS ON HEPARIN GTT AND THERAPEUTIC AT THIS TIME. NO PAIN, NAUSEA OR SHORTNESS OF AIR. SUGARS MAINTAINED THROUGHOUT SHIFT, FAMILY VISTITED, PATIENT HAS GREAT APPETITE. BED IN LOWEST POSITON, CALL LIGHT IN REACH, HIDE GRADER IN PLACE.
[2019-02-18] VITALS (20 sets, daily range): BP systolic 105–155; BP diastolic 30–89
--- NOTE | 2019-02-18 06:37 | NUR ---
ASSESSMENTS CHARTED. PATIENT MAKING INAPPROPRIATE STATEMENTS DURING THE SHIFT. REMAINS CONFUSED. STILL ON BED REST. MORNING APTT CAME BACK SUBTHERAPEUTIC. ADJUSTED HEPARIN GTT TITRATION. HELD NIGHTLY LANTUS FOR LOWER BLOOD GLUCOSE LEVEL. PATIENT REFUSING TURNS BUT IS ABLE TO MOVE SELF IN BED. FAMILY IS TO BRING PATIENT'S HOME CPAP MACHINE IN AM. [facility].
--- NOTE | 2019-02-18 09:55 | NUR ---
2000 ASSUMED CARE OF PATIENT. PLEASE SEE DOCUMENTED ASSESSMENT. PATIENT IS WET AND INCONTINENT. BATHED.
--- NOTE | 2019-02-18 09:55 | NUR ---
0878 DR ORTIZ TO SEE PATIENT. PATIENT IS NOW TELE STATUS AND WILL COME OFF OF HEPARIN. GOOD APPETITE
--- NOTE | 2019-02-18 10:17 | NUR ---
ICU rounds: Pt is tele status, plan to go to room 200. Pt to come off heparin at noon, start Eliquis, Pt will need to dc to home with MADI Cantor to check cost of med. Hemo following.
--- NOTE | 2019-02-18 10:24 | NUR ---
PATIENT'S DAUGHTER AWARE OF PLANNED TRANSFER TO ROOM 200. PATIENT AGREEABLE WITH PLAN OF CARE.
--- NOTE | 2019-02-18 10:59 | CON ---
[address] [address] CONSULTATION Name: JEANNETTE ANN Room: [address] IN [facility]#: [id number] Admission: 02/16/19 Attend Phys: Jessica Mccurdy Discharge: Date of : 43 Report #: [id number] THIS REPORT FOR: //name// CC: FAM unknown [facility] Rolo Sidhu DO DATE OF SERVICE: 02/17/2019 PULMONARY CONSULTATION PHYSICIAN REQUESTING CONSULTATION: Dr. Rolo Sidhu. REASON FOR CONSULTATION: Acute hypoxic respiratory failure, acute pulmonary embolism. HISTORY OF PRESENT ILLNESS: The patient is a 73-year-old gentleman with past medical history that is significant for coronary artery disease status post CABG, diabetes mellitus, hypertension, ulcerative colitis, Dueñas's palsy and obstructive sleep apnea, on CPAP. The patient presented to the Emergency Department with history of acute shortness of breath that has been going on for the last one day, which was associated also with pleuritic chest pain. The patient reports to me that he has been mostly sedentary and mostly bedbound over the last 2-3 months due to his worsening left foot drop. He has limited mobility. The patient denies any history of DVT or PE in the past. No hemoptysis. The patient was seen in the Emergency Department where he underwent CT angio of the chest that showed 5-lobe pulmonary emboli. He was started on anticoagulation. There was no hypotension or shock. The patient has a history of smoking 1.5 packs per day for 30 years. He quit smoking 20 years ago. No history of COPD or asthma. No history of massive bleeding, but he reports history of ulcerative colitis and intermittent rectal bleeding upon wiping. No massive rectal bleeding otherwise. He had also 12 polyps removed 3 months ago at the [facility]. The patient reports that he has been on his CPAP machine for 20 years. He has obstructive sleep apnea. No family history of DVT or PE in the past. PAST MEDICAL HISTORY: Positive for coronary artery disease, obstructive sleep apnea on CPAP, diabetes mellitus, hypertension and history [place] [address] CONSULTATION Name: JEANNETTE ANN Room: [address] IN [facility]#: [id number] Admission: 02/16/19 Attend Phys: Jessica Mccurdy Discharge: Date of : 43 Report #: [id number] has also right foot drop. PAST SURGICAL HISTORY: History of tonsillectomy. SOCIAL HISTORY: The patient is a former smoker. He has a history of smoking 1.5 packs per day for 30 years. He quit smoking 20 years ago. He denies alcohol or illicit drug use. He gets most of his care at the [facility]. FAMILY HISTORY: Negative for diabetes, hypertension or lung disease. REVIEW OF SYSTEMS: Positive for as described above for chest pain and shortness of breath. Remaining 10-point review of system was otherwise unremarkable. PHYSICAL EXAMINATION: VITAL SIGNS: Temperature 36.6, heart rate of 94, respiratory rate 24, blood pressure of 24, 128/74, saturations 96% on 3 liters nasal cannula oxygen. GENERAL: Showed an obese gentleman who is not in apparent distress who is conscious, oriented x 3. HEENT: Showed atraumatic head. NECK: Supple. Pupils are round, reactive to light and accommodation. No JVD, thyromegaly or cervical lymphadenopathy. CHEST: Clear air entry bilaterally with no added sounds. No crackles or wheezes. HEART: Regular rate and rhythm. Normal S1, S2. No murmur. ABDOMEN: Soft, lax, nontender, normal bowel sounds. EXTREMITIES: Lower limbs examination showed trace edema bilaterally with no clubbing, cyanosis or edema. No calf swelling. LABORATORY DATA: His labs and investigations were as follows: His CBC showed WBC count of 8.6, hemoglobin of 13.1, platelets of 174,000. Creatinine was 1.0. IMAGING DATA: His images were as follows: Chest x-ray showed no acute pulmonary process. His CT angio of the chest showed acute pulmonary emboli involving all 5 lobes including 2 narrow caliber saddle emboli across the main pulmonary artery with overall embolic burden subjectively, moderate to severe. There is evidence of pulmonary hypertension with reverse curvature of intraventricular symptoms indicating right ventricular hypertension. ASSESSMENT: 1. Acute hypoxic hypercapnic respiratory failure. 2. Acute 5-lobe pulmonary embolism. 3. Right heart strain, secondary to above. 4. Ex-smoker. 5. Obstructive sleep apnea. 6. [place] [address] CONSULTATION Name: NELI ANNE Doron Room: [address] IN [facility]#: [id number] Admission: 02/16/19 Attend Phys: Jessica Mccurdy Discharge: Date of : 43 Report #: [id number] PLAN: 1. The patient appears to have a provoked PE due to his decreased activity for the last 3 months with his foot drop. 2. I agree with anticoagulation parenterally with heparin and transitioning to oral anticoagulation soon. 3. I discussed with primary hospitalist. 4. Titrate oxygen to keep saturation above 92%. 5. I believe that the patient will benefit from hematology evaluation/hypercoagulable workup. 6. I ordered also Doppler venous ultrasound of the lower limbs. 7. No indication for thrombolysis at this stage. 8. Restart CPAP machine for sleep apnea. 9. He has evidence of right heart strain and elevated troponin. Cardiology team was consulted. 10. He would benefit from a repeat echo down the line in order to assess for residual pulmonary hypertension. Thank you for giving us the opportunity to participate in management of this patient. <ELECTRONICALLY SIGNED> By: Regino Oro MD 02/18/19 1059 [id number] 1110Ammar Lesley Oro MD /nt
--- NOTE | 2019-02-18 11:09 | NUR ---
CM contacted [facility] [phone], faxed Eliquis scripts to [phone]. [facility] is open on Thursday from 8-430pm, if Pt discharges. 30 day free Eliquis card provided and left on physical chart, in case there is an issue with getting the script filled.
--- NOTE | 2019-02-18 11:28 | NUR ---
1115 transferred to [facility] with all records and belongings. DAUGHTER JORDAN IN ATTENDANCE
--- NOTE | 2019-02-18 18:17 | NUR ---
RECEIVED PT AROUND 1230 FROM ICU. REVIEWED NURSING ASSESSMENT AND AGREE WITH ASSESSMENT. PT VSS, PT IS SR WITH PVCS ON TELE. HIGH FALL RISK, HOURLY ROUNDING PERFORMED, POSSESSIONS AND CALL LIGHT WITHIN REACH. PT UP WITH MINIMAL ASSIST AND CAN MOVE AROUND IN ROOM. A&OX4, DAUGHTER JORDAN AT BEDSIDE.
--- NOTE | 2019-02-18 20:06 | NUR ---
THIS RN HAS REVIEWED AND AGREES WITH THE ASSESSMENT AND CHARTING OF PRAKASH CHERRY AND SABRINA CHERRY.
[2019-02-19] VITALS: BP 119/59
[2019-02-19 04:00] VITALS: BP 129/74
--- NOTE | 2019-02-19 04:33 | NUR ---
ASSUMED CARE OF PT AFTER REPORT AT 1930. PT A&X4. FORGETFUL. VSS. PHYSICAL ASSESSMENT COMPLETED AND CHARTED. PT ON O2 AT 2L NC/ CPAP WHEN SLEEPING. PT TRACING SR PVC'S ON TELE. PT UPSTANDBY TO RESTROOM. PT DENIES ANY PAIN OR DISCOMFORT. PLACED ON CONTACT PRECAUTION FOR MRSA. PT ABLE TO SLEEP WELL ON BED. PT REFUSED TO BE TURNED BUT ABLE TO MOVE SELF IN BED. CALL LIGHT WITHIN REACH.
--- NOTE | 2019-02-19 08:30 | NUR ---
ASSUMED PT CARE AROUND 0700. PT WAS NOTED TO BE RESTING IN BED. PT WAS DISPLAYING HIS SENSE OF HUMOR WHILE COMPLETING ASSESSMENT. PT WAS A/0X4. CONT TO B/B USING URINAL. SR ON THE TELE MONITOR. WILL CONT HOURLY ROUNDS THIS SHIFT. ASSESSMENT COMPLETE ET DOCUMENTED IN CHART.
[2019-02-19 12:00] VITALS: BP 124/75
[2019-02-19 16:00] VITALS: BP 101/68
--- NOTE | 2019-02-19 17:42 | NUR ---
PT CONT TO TRACE SR WITH SOME PYC'S ON CARD MONITOR. PT WAS COMPLIANT WITH ALL CARES. ALL MEDS GIVEN PER DR ORDER.
[2019-02-19 20:00] VITALS: BP 119/70
[2019-02-19 23:39] VITALS: BP 122/72
[2019-02-20 04:00] VITALS: BP 134/79
--- NOTE | 2019-02-20 04:09 | NUR ---
ASSUMED CARE OF PT AFTER REPORT AT 1930. PT A&OX4. FORGETFUL AT TIMES. VSS. PHYSICAL ASSESSMENT COMPLETED AND CHARTED. PT ON O2 AT 2L NC/CPAP WHEN SLEEPING. PT TRACING AFIB/BBB ON TELE. PT UPSTANDBY TO RESTROOM. PT DENIES ANY PAIN OR DISCOMFORT. ABLE TO SLEEP WELL ON BED. FALL PRECAUTIONS IN PLACE. CALL LIGHT WITHIN REACH.
--- NOTE | 2019-02-20 04:20 | NUR ---
ASSUMED CARE OF PT AFTER REPORT AT 1930. PT A&OX4. FORGETFUL AT TIMES. VSS. PHYSICAL ASSESSMENT COMPLETED AND CHARTED. PT ON O2 AT 2L NC/CPAP WHEN SLEEPING. PT TRACING SR/PVC ON TELE. PT UP STANDBY TO RESTROOM. PT DENIES ANY PAIN OR DISCOMFORT. PT ABLE TO SLEEP WELL ON BED. CALL LIGHT WITHIN REACH.
[2019-02-20 04:24] LABS: HEMATOCRIT 38.3 % (42.0-52.0); HEMOGLOBIN 13.2 gm/dL (14.0-18.0); MCH 33.6 pg (26.0-34.0); MCHC 34.6 g/dL (28.0-37.0); MCV 97.1 fL (80.0-100.0); MPV 7.4 fl. (7.2-11.1); RBC 3.95 mil/uL (4.50-6.00); WBC 6.2 thou/uL (4.0-11.0)
[2019-02-20 04:46] LABS: ALBUMIN 3.2 g/dL (3.4-5.0); CALCIUM 9.4 mg/dL (8.5-10.1); CREATININE 0.8 mg/dL (0.6-1.3); POTASSIUM 3.6 mmol/L (3.5-5.1); TOTAL BILIRUBIN 0.4 mg/dL (<0.1-1.0); TOTAL PROTEIN 6.9 g/dL (6.4-8.2)
--- NOTE | 2019-02-20 08:00 | NUR ---
ASSUMED PT CARE AROUND 0700. PT RESTING IN BED WITH EYES OPEN. PT VSS, ESSESSMENT COMPLETE ET DOCUMENTED IN CHART. SR ON THE CARD MONITOR. PT A/OX3. PT IS ABLE TO MAKE NEEDS KNOWN. WILL CONT HOURL ROUNDS.
[2019-02-20 12:40] VITALS: BP 131/68
[2019-02-20] MEDS ORDERED: ELIQUIS5 MG PO (13:55)
[2019-02-20] MEDS ORDERED: NITROSTAT0.4 M1 SUBLING (14:18)
[2019-02-20 14:19] VITALS: BP 131/68
--- NOTE | 2019-02-20 15:10 | NUR ---
PT WAS DISCHARGED TO HOME. SON ARRIVED TO TAKE HIM HOME, PT'S TELE MONITOR WAS REMOVED WELL HIS IV. PT WAS TAKEN TO SON'S VEHICLE VIA W/C PUSHED BY NURSE. PT HAD ALL HIS BELONGS WITH HIM. THE DISCHARGE PACKET HAD BEEN REVIEWED. PT COMMUNICATED UNDERSTANDING OF DISCHARGE PACKET. PT STATED HE ALREADY SCHEDULED AN APPT WITH HIS DR FOR NEXT THURSDAY. PT [facility]
--- NOTE | 2019-02-27 14:11 | CON ---
[address] [address] CONSULTATION Name: JEANNETTE ANN Room: [address]#: [id number] Admission: 02/16/19 Attend Phys: Jessica Mccurdy Discharge: 02/20/19 Date of : 43 Report #: [id number] THIS REPORT FOR: //name// CC: FAM unknown [facility] Rolo Sidhu DATE OF SERVICE: 02/17/2019 REASON FOR CONSULTATION: Bilateral PE, question with anticoagulation. REQUESTING PHYSICIAN: Dr. Sidhu. HISTORY OF PRESENT ILLNESS: The patient is a 73-year-old man who has multiple medical problems including coronary artery disease, ulcerative colitis, diabetes mellitus who was admitted to the hospital with hypoxia and chest pain. He had a CT angiogram done, which showed extensive bilateral pulmonary emboli in all 5 lobes. The patient is on heparin drip. Initially, thrombectomy versus thrombolysis was discussed, but the patient's condition improved and the patient continues to be on heparin drip. ____ consult is requested for recommendations regarding anticoagulation ____ in ICU, now feeling better. He is on 2 liters oxygen. He is trying to get up from the bed to use urinal and bedside commode despite recommendations that he needs to stay in the bed. Does not have any chest pain. PAST MEDICAL HISTORY: Significant for medical problems as discussed above. He does not have a history of DVT or PE in the past. FAMILY HISTORY: Negative. SOCIAL HISTORY: Has supportive who is at bedside. PHYSICAL EXAMINATION: GENERAL: Reveals, well-developed, well-nourished male, not in acute distress. VITAL SIGNS: Blood pressure 129/66, heart rate is 98, temperature 98.4, respirations 16, pulse ox 94% on 2 liters nasal cannula. HEENT: Does not reveal thrush. HEART: Normal S1, S2. LUNGS: Clear. EXTREMITIES: Lower extremity, no edema. MENTAL STATUS: Alert and oriented x 3. There is no peripheral lymphadenopathy LABORATORY DATA: White count 8.6, hemoglobin 13.1, platelets 174. CT IMAGING: [place] [address] CONSULTATION Name: SETHJEANNETTE Doron Room: [address]#: [id number] Admission: 02/16/19 Attend Phys: Jessica Mccurdy Discharge: 02/20/19 Date of : 43 Report #: [id number] ASSESSMENT AND PLAN: Extensive pulmonary embolism with pulmonary hypertension and right ventricular hypertrophy. The patient is on heparin drip. Agree with heparin drip. Now we can change anticoagulants to Eliquis tomorrow. This patient's condition continues to improve. Thank you very much for allowing me to participate in care of this patient. We will continue to follow with you. <ELECTRONICALLY SIGNED> By: Geeta Ye MD 02/27/19 1411 1432 [id number] swapna Garrido
== END 2019-02-20 15:10 | disposition home or self-care (01) | DRG 280 ==
LOC: M.ERS 11:33 → M.TBA-ER 16:20 → M.ICU 16:20 → M.2W 02-18 11:30
PROVIDERS: Emergency Medicine; ADMIT Internal Medicine
PROC: 5A09357 Assistance with Respiratory Ventilation, Less than 24 Consecutive Hours, Continuous Positive Airway Pressure (ICD-10-PCS; principal; 2019-02-18)
PROC: 5A09357 Assistance with Respiratory Ventilation, Less than 24 Consecutive Hours, Continuous Positive Airway Pressure (ICD-10-PCS; 2019-02-19)
PROC: 5A09357 Assistance with Respiratory Ventilation, Less than 24 Consecutive Hours, Continuous Positive Airway Pressure (ICD-10-PCS; 2019-02-20)
DX: I21.A1 Myocardial infarction type 2 (principal); I26.92 Saddle embolus of pulmonary artery without acute cor pulmonale; J96.01 Acute respiratory failure with hypoxia; J96.02 Acute respiratory failure with hypercapnia; Z68.42 Body mass index [BMI] 45.0-49.9, adult; E11.9 Type 2 diabetes mellitus without complications; F32.9 Major depressive disorder, single episode, unspecified; I10 Essential (primary) hypertension; F03.90 Unspecified dementia, unspecified severity, without behavioral disturbance, psychotic disturbance, mood disturbance, and anxiety; G47.33 Obstructive sleep apnea (adult) (pediatric); I27.20 Pulmonary hypertension, unspecified; I51.7 Cardiomegaly; I25.10 Atherosclerotic heart disease of native coronary artery without angina pectoris; E66.9 Obesity, unspecified; Z86.010 Personal history of colon polyps; Z95.5 Presence of coronary angioplasty implant and graft; Z95.1 Presence of aortocoronary bypass graft; Z88.8 Allergy status to other drugs, medicaments and biological substances; Z87.891 Personal history of nicotine dependence; Z86.718 Personal history of other venous thrombosis and embolism; Z82.49 Family history of ischemic heart disease and other diseases of the circulatory system

== ENCOUNTER 2020-07-03 13:38 | Emergency (ER) | payer OTHER ==
[~2020-07-03] VITALS: Ht 175.3 cm; Wt 104.3 kg
[~2020-07-03 13:38] MED LIST changes: +ALOGLIPTIN25 MG PO; -ASACOL HD800 MG PO; +AZATHIOPRINE50 MG PO; +ELIQUIS5 MG PO; +NITROSTAT0.4 M1 SUBLING; +OZEMPIC1 MG/0.75; +PENTASA 250 MG250 MG PO; +PRALUENT P150 MG/1 M
[2020-07-03] MEDS ORDERED: FAMOTIDINE 20 M20 MG PO (13:58)
[2020-07-03] MEDS ORDERED: ST. JOSEPH ASPI81 MG PO (13:58)
[2020-07-03] MEDS ORDERED: FLOMAX0.4 MG PO (14:58)
[2020-07-03] MEDS ORDERED: TRULICITY1.5 MG/0.5 SUBQ (15:01)
[2020-07-03 17:03] VITALS: BP 121/52
== END 2020-07-03 17:04 | disposition home or self-care (01) ==
LOC: M.ERS 13:38
DX: M21.372 Foot drop, left foot (principal); M25.572 Pain in left ankle and joints of left foot; G89.29 Other chronic pain; R60.0 Localized edema; E11.9 Type 2 diabetes mellitus without complications; I10 Essential (primary) hypertension; G47.30 Sleep apnea, unspecified; Z95.1 Presence of aortocoronary bypass graft; Z90.89 Acquired absence of other organs; Z79.4 Long term (current) use of insulin; Z88.8 Allergy status to other drugs, medicaments and biological substances

== ENCOUNTER 2021-01-29 13:16 | Emergency (ER) | payer OTHER ==
[~2021-01-29] VITALS: Ht 175.3 cm; Wt 110.2 kg
[~2021-01-29 13:16] MED LIST changes: +FAMOTIDINE 20 M20 MG PO; +FLOMAX0.4 MG PO; +ST. JOSEPH ASPI81 MG PO; +TRULICITY1.5 MG/0.5 SUBQ
[2021-01-29] MEDS ORDERED: NOVOLOG100 UNIT/M SUBQ (13:40)
[2021-01-29 14:07] LABS: ABSOLUTE BASOPHILS 0.1 thou/uL (0.0-0.2); ABSOLUTE EOSINOPHILS 0.1 thou/uL (0.0-0.7); ABSOLUTE MONOCYTES 0.5 thou/uL (0.0-1.2); ABSOLUTE NEUTROPHILS 3.7 thou/uL (1.6-8.1); BASOPHILS 1.1 %; EOSINOPHILS 2.6 %; HEMATOCRIT 37.2 % (42.0-52.0); HEMOGLOBIN 12.7 gm/dL (14.0-18.0); LYMPHOCYTES 18.2 %; MCH 32.7 pg (26.0-34.0); MCHC 34.2 g/dL (28.0-37.0); MCV 95.7 fL (80.0-100.0); MONOCYTES 8.5 %; MPV 7.6 fl. (7.2-11.1); NUCLEATED RBCS 0 /100WBC; PLATELET COUNT* 181 thou/uL (150-400); POLYS 69.6 %; RBC 3.89 mil/uL (4.50-6.00); RDW-CV 13.9 % (10.5-14.5); WBC 5.3 thou/uL (4.0-11.0)
[2021-01-29 14:16] LABS: CALCIUM 8.5 mg/dL (8.5-10.1); CREATININE 1.1 mg/dL (0.6-1.3); POTASSIUM 4.1 mmol/L (3.5-5.1)
[2021-01-29 14:20] LABS: ALBUMIN 3.3 g/dL (3.4-5.0); MAGNESIUM 1.9 mg/dL (1.8-2.4); TOTAL BILIRUBIN 0.5 mg/dL (<0.1-1.0); TOTAL PROTEIN 7.1 g/dL (6.4-8.2)
[2021-01-29 15:06] LABS: URINE BILIRUBIN NEGATIVE (Negative); URINE BLOOD NEGATIVE (Negative); URINE CLARITY CLEAR; URINE COLOR YELLOW; URINE GLUCOSE-RANDOM 3+ (Negative); URINE KETONES NEGATIVE (Negative); URINE LEUKOCYTES-REFLEX NEGATIVE (Negative); URINE NITRITE-REFLEX NEGATIVE (Negative); URINE PROTEIN NEGATIVE (Negative); URINE SPECIFIC GRAVITY 1.025 (1.005-1.030); URINE UROBILINOGEN 0.2 E.U./dl (0.2-1.0)
--- NOTE | 2021-01-29 16:07 | EKG ---
[place] [address] ELECTROCARDIOGRAM REPORT Name: JEANNETTE ANN Room: [facility]#: [id number] Admission: 01/29/21 Attend Phys: Discharge: Date of : 43 Date of Service: 01/29/21 1347 Report #: [id number] THIS REPORT FOR: //name// [facility] ED Test Date: 2021-01-29 Test Time: 13:47:50 Pat Name: JEANNETTE ANN Department: Room: Gender: Urgent Care Physician: [facility] : 1945 Requested By: Alexandra Sanders Order Number: [id number] MD: Andres Dhaliwal Measurements Intervals [place] Rate: 66 P: 46 WV: 141 QRS: 17 QRSD: 102 T: 35 QT: 406 QTc: 426 Interpretive Statements Sinus rhythm Baseline wander in lead(s) II,III,aVF Compared to ECG 02/16/2019 11:41:09 Sinus tachycardia no longer present Atrial premature complex(es) no longer present Myocardial infarct finding no longer present Electronically Signed On 01-29-2021 16:07:20 CDT by Andres Dhaliwal [email or web address] <ELECTRONICALLY SIGNED> By: Andres Dhaliwal MD, FACC 01/29/21 1607 1347 1347 Andres Dhaliwal MD, FACC /EPI
[2021-01-29 16:37] VITALS: BP 115/70
== END 2021-01-29 16:46 | disposition home or self-care (01) ==
LOC: M.ERS 13:16
PROVIDERS: Nurse Practitioner Family
DX: E11.65 Type 2 diabetes mellitus with hyperglycemia (principal); Z20.822 Contact with and (suspected) exposure to COVID-19; R53.1 Weakness; R19.7 Diarrhea, unspecified; K59.00 Constipation, unspecified; F32.9 Major depressive disorder, single episode, unspecified; I10 Essential (primary) hypertension; F03.90 Unspecified dementia, unspecified severity, without behavioral disturbance, psychotic disturbance, mood disturbance, and anxiety; Z86.711 Personal history of pulmonary embolism; Z90.89 Acquired absence of other organs; Z79.899 Other long term (current) drug therapy; Z79.4 Long term (current) use of insulin; Z79.82 Long term (current) use of aspirin; Z88.8 Allergy status to other drugs, medicaments and biological substances